=== PATIENT | female | born 1950 | race African-American/Black ===

== ENCOUNTER 2017-07-13 18:00 | Inpatient (IN) | payer MEDICARE, OTHER ==
[~2017-07-13] VITALS: Ht 165.1 cm; Wt 64.0 kg
[~2017-07-13 18:00] MED LIST: ERGO500014 PO; LEVO88TA42 PO; LISI2.5T59 PO; NOVMIX SC
[2017-07-13] MEDS ORDERED: LABETALOL HCL 20MG INJ IV ONE (18:30)
[2017-07-13] MEDS ORDERED: FOLI-49 PO (18:43)
[2017-07-13] MEDS ORDERED: MET25 PO (18:44)
--- NOTE | 2017-07-13 18:49 | RADRPT ---
PROCEDURE: CT head without intravenous contrast CLINICAL INDICATION: Stroke. Slurred speech and confusion, resolving. BP 240/120. COMPARISON: MRI from 07/01/2016. TECHNIQUE: Axial CT images from skull base to vertex with coronal and sagittal reformats. DOSE: The estimated administered radiation dose was CTDI vol = 44 mGy. DLP = 720 mGy-cm. One or mor e of the following dose reduction techniques were used: automated exposure control, adjustment of th e mA and/or kV according to patient size, or use of iterative reconstruction. FINDINGS: Parenchyma: No acute hemorrhage, large territorial infarction, or mass. Moderate amount of periventr icular and subcortical white matter hypodensity, a nonspecific finding often associated with chronic microangiopathy. Ventricles: No ventriculomegaly or ventricular effacement. Extra-axial spaces: No herniation or midline shift. Paranasal sinuses: Clear. Mastoids and middle ears: Clear. Visualized orbits: Normal. Vessels: Mild calcified atherosclerotic arterial plaque. Bones: Normal. Extracranial soft tissues: Normal. Additional comment: None. IMPRESSION: 1. No acute hemorrhage or large territorial infarction. 2. Moderate white matter changes, a non-specific finding often associated with microangiopathy. Dr. Vang discussed results with Dr. Ackerman at 6:48 pm 07/13/2017. RPTAT: AA Physician Shirley Date Time Electronically viewed and signed by Physician Shirley on 07/13/2017 18:49 LG/
[2017-07-13] MEDS ORDERED: ONDANSETRON 4 MG INJ IV PRN ×2 (19:00→21:00)
[2017-07-13] MEDS ORDERED: ACETAMINOPHEN 325 MG TAB PO PRN ×2 (19:00→21:00)
[2017-07-13] MEDS ORDERED: ASPIRIN 325 MG TAB PO ONE (19:00)
--- NOTE | 2017-07-13 19:01 | ERA ---
ER Documentation Chief Complaint Date/Time DATE: 07/13/17 TIME: 18:57 Chief Complaint Patient is hypertensive, Aloc HPI Patient is a 66-year-old female with hypertension and diabetes who presents with slurred speech. The patient was found to be disoriented and slurred speech at 4:30 PM per the daughter. The daughter had called her mom at that time. The mom says that she was not feeling well. The daughter thought maybe this was related to a low blood sugar but the patient had eaten one hour prior. The patient was still out of it however per the daughter. The speech is gotten better but the daughter says her still may be some slurred speech. There is no one-sided weakness. The patient was sweating profusely during this episode per the daughter. The symptoms really started at around 3:45P per the patient. ROS All systems reviewed and are negative except as per history of present illness. Medications Home Meds Reported Medications Methotrexate* (Methotrexate*) 2.5 Mg Tab, 17.5 MG PO Q7D, TAB 07/13/17 Folic Acid* (Folic Acid*) 1 Mg Tablet, 1 MG PO DAILY, TAB 07/13/17 Insulin Aspart (Novolog Mix (70/30)) 100 Units/Ml Soln, 10 SC QPM, EA 06/25/16 Insulin Aspart (Novolog Mix (70/30)) 100 Units/Ml Soln, 30 SC QAM, VIAL 06/25/16 Levothyroxine Sodium* (Levoxyl*) 88 Mcg Tablet, 88 MCG PO BEFORE BREAKFAST, #30 TAB 06/25/16 Discontinued Reported Medications Lisinopril* (Lisinopril*) 2.5 Mg Tablet, 2.5 MG PO DAILY, #30 TAB 06/25/16 Ergocalciferol* (Drisdol* (Vitamin D2)) 50,000 Unit Capsule, 70188 UNIT PO Q7D, CAP 06/25/16 Allergies Allergies: Coded Allergies: No Known Allergy (Unverified , 07/13/17) PMhx/Soc Positive for hypertension and diabetes FmHx Family History: diabetes Physical Exam Vitals Vital Signs Date Time Temp Pulse Resp B/P Pulse Ox O2 Delivery O2 Flow Rate FiO2 07/13/17 18:08 98.3 96 20 243/106 98 Physical Exam Const: No acute distress Head: Atraumatic Eyes: Normal Conjunctiva, patient has a peaked pupil on the left from recent eye surgery ENT: Normal External Ears, Nose and Mouth. Neck: Full range of motion..~ No meningismus. Resp: Clear to auscultation bilaterally Cardio: Regular rate and rhythm, no murmurs Abd: Soft, non tender, non distended. Normal bowel sounds Skin: No petechiae or rashes Back: No midline or flank tenderness Ext: No cyanosis, or edema Neur: Awake and alert, no slurred speech, strength is 5 out of 5 in all 4 extremities, finger to nose is normal, cranial nerves II through XII are intact Psych: Normal Mood and Affect Results 24 hrs Current Medications Medications (Trade) Dose Ordered Sig/Aleshia Route PRN Reason Start Time Stop Time Status Last Admin Dose Admin Labetalol HCl (Labetalol) 20 mg ONCE ONCE IV 07/13/17 18:30 07/13/17 18:31 DC Aspirin (Aspirin) 325 mg ONCE ONCE PO 07/13/17 19:00 07/13/17 19:01 Ondansetron HCl (Zofran Inj) 4 mg ER BRIDGE PRN IV NAUSEA AND/OR VOMITING 07/13/17 19:00 07/14/17 18:59 Acetaminophen (Tylenol Tab) 650 mg ER BRIDGE PRN PO MILD PAIN/FEVER 07/13/17 19:00 07/14/17 18:59 Procedures/MDM CT brain shows no bleed per radiology. EKG read by me: Rate/Rhythm: Sinus bradycardia at a rate of 52 Intervals: Normal Impression: Sinus bradycardia without ischemia Patient is a 66-year-old female who presents with acute slurred speech and disorientation. I believe this is likely a TIA and potentially hypertensive emergency. Her blood pressure was 240/120 in the emergency department. She will be given labetalol 20 mg IV to lower her blood pressure. She was given aspirin after she passed a swallow evaluation and her CT brain was negative for bleeding. The patient will need further workup for TIA as well. I spoke with Dr. Loredo from the panel team for admission to a telemetry bed. Laboratory studies are currently pending. Critical Care: Time: 35 minutes excluding all billable procedures. Treatments/Evaluations: Close monitoring and treatment of unstable vital signs, cardiorespiratory, and neurologic status, while maintaining tight balance of fluid, respiratory, and cardiac interventions. Departure Diagnosis: Primary Impression: TIA (transient ischemic attack) Qualified Code: G45.9 - Transient cerebral ischemia, unspecified type Additional Impression: Hypertensive emergency Condition: KENDRICK Montoya MD Jul 13, 2017 19:01
--- NOTE | 2017-07-13 19:16 | RADRPT ---
PROCEDURE: Chest x-ray CLINICAL INDICATION: Stroke TECHNIQUE: Chest single view COMPARISON: None FINDINGS: There is mild cardiomegaly and an sclerotic aortic calcification. The pulmonary vessels are normal in caliber. There is atelectasis/scarring is now in the right lower lung. Lungs otherwise clear. Th e costophrenic angles are sharp. The right clavicle is not visualized and may be surgically absent. IMPRESSION: No acute cardiopulmonary disease. Linear scarring/atelectasis in the right lower lobe Mild cardiomegaly and atherosclerotic aortic calcification Right clavicle not visualized and may be surgically absent RPTAT: HH .Nolan Pena MD, Date Time Electronically viewed and signed by .Nolan Pena MD, on 07/13/2017 19:16 .W/
[2017-07-13 19:20] LABS: BASOPHILS % 0.3 % (0.0-2.0); EOSINOPHILS # 0.1 10^3/ul (0.0-0.5); EOSINOPHILS % 0.6 % (0.0-7.0); HEMOGLOBIN 14.4 g/dl (12.0-16.0); LYMPHOCYTES # 1.8 10^3/ul (0.8-2.9); LYMPHOCYTES % 15.7 % (15.0-51.0); MEAN CORPUSCULAR HEMOGLOBIN 32.8 pg (29.0-33.0); MEAN CORPUSCULAR HGB CONC 32.7 g/dl (32.0-37.0); MEAN CORPUSCULAR VOLUME 100.2 fl (82.0-101.0); MEAN PLATELET VOLUME 9.4 fl (7.4-10.4); MONOCYTE # 0.7 10^3/ul (0.3-0.9); MONOCYTES % 5.7 % (0.0-11.0); NEUTROPHIL # 9.1 10^3/ul (1.6-7.5); NEUTROPHILS % 77.4 % (39.0-77.0); PLATELET COUNT 216 10^3/UL (140-415); RED BLOOD COUNT 4.39 10^6/ul (4.20-5.40); RED CELL DISTRIBUTION WIDTH 14.5 % (11.5-14.5); WHITE BLOOD COUNT 11.7 10^3/ul (4.8-10.8)
[2017-07-13 19:25] LABS: ADD UMIC YES; UR ASCORBIC ACID NEGATIVE (NEGATIVE); UR BILIRUBIN (Dip) NEGATIVE (NEGATIVE); UR BLOOD (Dip) NEGATIVE (NEGATIVE); UR CLARITY CLEAR (CLEAR); UR COLOR COLORLESS (YELLOW); UR GLUCOSE (Dip) NEGATIVE (NEGATIVE); UR KETONES (Dip) NEGATIVE (NEGATIVE); UR LEUKOCYTE ESTERASE (Dip) NEGATIVE Leu/ul (NEGATIVE); UR NITRITE (Dip) NEGATIVE (NEGATIVE); UR RBC 3 /HPF (0-5); UR SPECIFIC GRAVITY (Dip) 1.003 (1.003-1.030); UR TOTAL PROTEIN (Dip) 3+ mg/dl (NEGATIVE); UR UROBILINOGEN (Dip) NEGATIVE (NEGATIVE)
[2017-07-13] MEDS ORDERED: hydrALAzine 20 MG INJ ONE (19:26)
[2017-07-13] MEDS ORDERED: hydrALAzine 20 MG INJ IV ONE (19:30)
[2017-07-13 19:37] LABS: BARBITURATES Negative (NEGATIVE); BENZODIAZEPINES Negative (NEGATIVE); CANNABINOIDS Negative (NEGATIVE); COCAINE Negative (NEGATIVE); OPIATES Negative (NEGATIVE)
[2017-07-13 19:44] LABS: INR 0.83; PROTIME 11.4 Sec (12.2-14.2); PT RATIO 0.9
[2017-07-13 19:45] LABS: PARTIAL THROMBOPLASTIN TIME 32.8 Sec (25.0-35.0)
[2017-07-13 19:46] LABS: ANION GAP 11 (8-16); BLOOD UREA NITROGEN 15 mg/dl (7-20); CALCIUM 9.8 mg/dl (8.4-10.2); CARBON DIOXIDE 33 mmol/L (21-31); CHLORIDE 106 mmol/L (97-110); CREATININE 0.99 mg/dl (0.44-1.00); GLUCOSE 82 mg/dl (70-220); POTASSIUM 4.1 mmol/L (3.5-5.1); SODIUM 146 mmol/L (135-144)
[2017-07-13 20:04] LABS: TROPONIN-I < 0.012 ng/ml (0.00-0.12)
[2017-07-13] MEDS: SOD CHLORIDE 0.9% 1,000 ML IV SCH (20:42)
[2017-07-13] MEDS ORDERED: NACL 0.9% 3 ML SYG IV SCH (21:00)
[2017-07-13] MEDS: FAMOTIDINE 20 MG INJ IV SCH (21:00)
--- NOTE | 2017-07-13 21:31 | EN ---
Date/Time of Note Date/Time of Note DATE: 07/13/17 TIME: 21:26 ER Progress Note This patient was signed out to me by Dr. Iam Ackerman at 7 PM on September 12, 2017. Very briefly this is a 66-year-old female who is presenting with hypertensive emergency and findings concerning for a TIA. The patient was admitted by Dr. Ackerman, but her chest x-ray and blood work was pending at the time. The patient has a mild leukocytosis but no left shift. She is afebrile and I do not suspect a systemic infection. The patient's not anemic today. The patient's platelet count is unremarkable. The patient's renal function is unremarkable. The patient's troponin is negative. The patient does not have any significant electrolyte abnormalities. The patient's urinalysis shows no signs of an obvious urinary tract infection. The patient does have protein in her urine that could demonstrate a nephropathy, which could be associated with her high blood pressure. Patient's imaging was read by the radiologist as follows: CT HEAD IMPRESSION: No acute hemorrhage or large territorial infarction. Moderate white matter changes, a non-specific finding often associated with microangiopathy. Dr. Vang discussed results with Dr. Ackerman at 6:48 pm 2016. Electronically viewed and signed by Travis Vang Physician on 07/13/2017 18: 49 CXR IMPRESSION: No acute cardiopulmonary disease. Linear scarring/atelectasis in the right lower lobe. Mild cardiomegaly and atherosclerotic aortic calcification. Right clavicle not visualized and may be surgically absent Electronically viewed and signed by .Nolan Pena MD, MD on 07/13/2017 19:16 The patient was reevaluated and did not have any further complaints. The patient was ordered labetalol, but she was bradycardic in the emergency department. This was changed to 10 mg of hydralazine. The patient's blood pressure did trend down. She will be admitted for evaluation of her hypertensive urgency as well as evaluation for a TIA. SUKHI GARCIA MD Jul 13, 2017 21:31
[2017-07-14] VITALS (11 sets, daily range): BP systolic 134–179; BP diastolic 63–81; PULSE 55–78; RESP 16–19; Ht 165.1 cm; Wt 64.0 kg
[2017-07-14] MEDS ORDERED: DEXTROSE 50% 50 ML SYRINGE IV PRN ×2 (04:00)
[2017-07-14] MEDS ORDERED: GLUCOSE GEL 15 GRAM TUBE PO PRN ×2 (04:00)
[2017-07-14] MEDS ORDERED: GLUCOSE GEL 15 GRAM TUBE BUCCAL PRN (04:00)
[2017-07-14] MEDS ORDERED: GLUCAGON 1 MG INJ IM PRN (04:00)
--- NOTE | 2017-07-14 04:40 | HP ---
Date/Time of Note Date/Time of Note DATE: 07/14/17 TIME: 04:25 Assessment/Plan VTE Prophylaxis VTE Prophylaxis Intervention: SCD's Lines/Catheters Urinary Cath still in place: No Assessment/Plan Chief Complaint/Hosp Course This is a 66-year-old female being admitted to the telemetry floor for: #1 Slurred speech: Rule out TIA/neuro vascular abnormality. CAT scan of the head is normal. At the current time will allow for permissive hypertension in the setting of possible underlying neurovascular abnormality. Will obtain an MRA of the head and neck and MRI of the brain without contrast. Lipid panel, hemoglobin A1c. Neurology consult. PT OT evaluation, patient passed bedside swallow eval will put patient on diabetic diet. Neurochecks every 4 hours. #2 diabetes mellitus: Cover 100 control diet, A1c, continue insulin regimen, insulin sliding scale #3 rheumatoid arthritis: Continue folic acid, resume home methotrexate as an outpatient #4 hypertension: At the current time will allow for permissive hypertension, will treat with hydralazine for blood pressure of 220/120 #5 DVT GI prophylaxis: SCDs, acid casper Further treatment strategy will be implemented as per the clinical course Problems: HPI/ROS Admit Date/Time Admit Date/Time Jul 13, 2017 at 18:53 Hx of Present Illness Chief complaint: Slurred speech Patient is a 66-year-old female with hypertension and diabetes who presents with slurred speech. The patient was found to be disoriented and slurred speech at 4:30 PM per the daughter. The daughter had called her mom at that time. The mom says that she was not feeling well. The daughter thought maybe this was related to a low blood sugar but the patient had eaten one hour prior. The patient was still out of it however per the daughter. The speech is gotten better but the daughter says her still may be some slurred speech. There is no one-sided weakness. The patient was sweating profusely during this episode per the daughter. The symptoms really started at around 3:45P per the patient. Upon my examination patient states that her Symptoms have improved and she feels that she is back to normal her speech appears to be be normal as she states. Allergies: NKDA Medications: See NICOLE RODRÍGUEZ Const: As per HPI Eyes : No pain discharge or redness or change in visual acuity ENT: No pain, sore throat, congestion, congestion, dysphagia or discharge Respiratory: No shortness of breath, cough, sputum, wheezing, or pleuritic pain Cardiovascular: No chest pain, palpitation, PND, or edema GI : no change in appetite, abdominal pain, nausea, vomiting, diarrhea, constipation, or change in the color his stool Genitourinary: No dysuria, hematuria, flank pain , discharge or CVA tenderness Musculoskeletal: No joint pain, back pain, neck pain, restricted range of motion in neck or joints Skin: No rash, bruising or hives Neuro: As per HPI Endocrine: No polyuria, polydipsia, temperature intolerance Psych: No hallucination, depression, anxiety or suicidal ideation PMH/Family/Social Past Medical History Rheumatoid arthritis, diabetes mellitus, hypertension, diabetic retinopathy, history of thoracic outlet syndrome Past Surgical History Thoracic outlet syndrome surgery, 1 Family History Significant Family History: heart disease, diabetes, hypertension Social History Alcohol Use: none Smoking Status: Never smoker Drug Use: none Exam/Review of Systems Vital Signs Vitals Vital Signs Date Time Temp Pulse Resp B/P Pulse Ox O2 Delivery O2 Flow Rate FiO2 07/14/17 04:17 55 07/14/17 03:57 97.6 19 135/63 96 07/13/17 21:15 Room Air Exam Exam General: Patient is well-developed well-nourished The patient is alert oriented -3 lying comfortably in bed. HEENT: Atraumatic, normocephalic. The pupils are equal, round and reactive. Extraocular motor are intact Neck: Supple with full range of motion. No rigidity or meningismus Chest: Nontender Lungs: Clear to auscultation bilaterally no crackles rales or wheezing Heart: Normal S1-S2, Regular rhythm and rate. No murmur, S3, or S4 Abdomen: Soft , nontender, nondistended , bowel sounds are present. No guarding no rebound tenderness , No masses or organomegaly. No costovertebral temporal angle mass Extremities: Normal to inspection, no edema no cyanosis Neurologic: Normal mental status, speech normal, cranial nerves II through XII are intact, motor and sensory are intact, no focal neurological deficits during examination, no pronator drift Additional Comments EKG Rate/Rhythm: Sinus bradycardia at a rate of 52 Intervals: Normal Impression: Sinus bradycardia without ischemia As per ED physician documentation ROCEDURE: Chest x-ray CLINICAL INDICATION: Stroke TECHNIQUE: Chest single view COMPARISON: None FINDINGS: There is mild cardiomegaly and an sclerotic aortic calcification. The pulmonary vessels are normal in caliber. There is atelectasis/scarring is now in the right lower lung. Lungs otherwise clear. The costophrenic angles are sharp. The right clavicle is not visualized and may be surgically absent. IMPRESSION: No acute cardiopulmonary disease. Linear scarring/atelectasis in the right lower lobe Mild cardiomegaly and atherosclerotic aortic calcification Right clavicle not visualized and may be surgically absent RPTAT: HH .Nolan Pena MD, MD Date Time Electronically viewed and signed by .Nolan Pena MD, MD on 07/13/2017 19:16 .W/ CC: KENDRICK HAYNES MD PROCEDURE: CT head without intravenous contrast CLINICAL INDICATION: Stroke. Slurred speech and confusion, resolving. BP 240/ 120. COMPARISON: MRI from 07/01/2016. TECHNIQUE: Axial CT images from skull base to vertex with coronal and sagittal reformats. DOSE: The estimated administered radiation dose was CTDI vol = 44 mGy. DLP = 720 mGy-cm. One or more of the following dose reduction techniques were used: automated exposure control, adjustment of the mA and/or kV according to patient size, or use of iterative reconstruction. FINDINGS: Parenchyma: No acute hemorrhage, large territorial infarction, or mass. Moderate amount of periventricular and subcortical white matter hypodensity, a nonspecific finding often associated with chronic microangiopathy. Ventricles: No ventriculomegaly or ventricular effacement. Extra-axial spaces: No herniation or midline shift. Paranasal sinuses: Clear. Mastoids and middle ears: Clear. Visualized orbits: Normal. Vessels: Mild calcified atherosclerotic arterial plaque. Bones: Normal. Extracranial soft tissues: Normal. Additional comment: None. IMPRESSION: 1. No acute hemorrhage or large territorial infarction. 2. Moderate white matter changes, a non-specific finding often associated with microangiopathy. Dr. Vang discussed results with Dr. Haynes at 6:48 pm 07/13/2017. RPTAT: AA Physician Shirley Date Time Electronically viewed and signed by Travis Vang Physician on 07/13/2017 18: 49 LG/ CC: KENDRICK HAYNES MD Labs Result Diagram: 07/13/17 1900 07/13/17 1900 Medications Medications Current Medications Sodium Chloride (NS) 1,000 ml @ 70 mls/hr [id number] IV Last administered on 07/13 20:42; Admin Dose 70 MLS/HR; Start 07/13/17 at 20:42 Ondansetron HCl (Zofran Inj) 4 mg Q6H PRN IV NAUSEA AND/OR VOMITING; Start at 21:00 Acetaminophen (Tylenol Tab) 650 mg Q6H PRN PO PAIN LEVEL 1-3 OR FEVER; Start at 21:00 Famotidine (Pepcid Iv) 20 mg Q12 IV Last administered on 07/13/17 21:00; Admin Dose 20 MG; Start 07/13/17 at 21:00 Hydralazine HCl (Apresoline) 10 mg Q6H PRN IV ELEVATED BLOOD PRESSURE; Start at 00:00 Influenza Virus Vaccine (Fluzone) 0.5 ml ONCE ONCE IM* ; Start 07/15/17 at 01:30 ; Stop 07/15/17 at 01:31 Folic Acid (Folic Acid) 1 mg DAILY PO ; Start 07/14/17 at 09:00 Insulin Aspart Prota 70%/Aspart 30% (Novolog Mix (70/ 30) Flexpen) 10 unit QPM SC ; Start 07/14/17 at 21:00 Insulin Aspart Prota 70%/Aspart 30% (Novolog Mix (70/ 30) Flexpen) 30 unit QAM SC ; Start 07/14/17 at 09:00 Diagnostic Test (Pha) (Accu-Chek) 1 ea 02 XX ; Start 07/15/17 at 02:00 Miscellaneous Information 1 ea NOTE XX ; Start 07/14/17 at 04:00 Glucose (Glutose) 15 gm Q15M PRN PO DECREASED GLUCOSE; Start 07/14/17 at 04:00 Glucose (Glutose) 22.5 gm Q15M PRN PO DECREASED GLUCOSE; Start 07/14/17 at 04: 00 Dextrose (D50w Syringe) 25 ml Q15M PRN IV DECREASED GLUCOSE; Start 07/14/17 at 04:00 Dextrose (D50w Syringe) 50 ml Q15M PRN IV DECREASED GLUCOSE; Start 07/14/17 at 04:00 Glucagon (Glucagen) 1 mg Q15M PRN IM DECREASED GLUCOSE; Start 07/14/17 at 04:00 Glucose (Glutose) 15 gm Q15M PRN BUCCAL DECREASED GLUCOSE; Start 07/14/17 at 04 :00 LUCIA WHITFIELD Jul 14, 2017 04:37
[2017-07-14] MEDS: LEVOTHYROXINE 88 MCG TAB PO SCH (07:00)
[2017-07-14] MEDS: INSULIN ASPART [NOVOLOG] 3 ML PEN SC SCH ×4 (07:55→22:10)
[2017-07-14 08:50] LABS: BASOPHILS % 0.3 % (0.0-2.0); EOSINOPHILS # 0.1 10^3/ul (0.0-0.5); HEMATOCRIT 37.5 % (37.0-47.0); HEMOGLOBIN 11.9 g/dl (12.0-16.0); LYMPHOCYTES # 1.8 10^3/ul (0.8-2.9); LYMPHOCYTES % 24.5 % (15.0-51.0); MEAN CORPUSCULAR HEMOGLOBIN 31.5 pg (29.0-33.0); MEAN CORPUSCULAR HGB CONC 31.7 g/dl (32.0-37.0); MEAN CORPUSCULAR VOLUME 99.2 fl (82.0-101.0); MONOCYTE # 0.9 10^3/ul (0.3-0.9); NEUTROPHIL # 4.5 10^3/ul (1.6-7.5); NEUTROPHILS % 61.9 % (39.0-77.0); PLATELET COUNT 195 10^3/UL (140-415); RED BLOOD COUNT 3.78 10^6/ul (4.20-5.40); RED CELL DISTRIBUTION WIDTH 14.6 % (11.5-14.5); WHITE BLOOD COUNT 7.3 10^3/ul (4.8-10.8)
[2017-07-14] MEDS: FOLIC ACID 1 MG TAB PO SCH (09:01)
[2017-07-14] MEDS: FAMOTIDINE 20 MG INJ IV SCH ×2 (09:03→21:13)
[2017-07-14] MEDS: INSULIN ASP PROT/ASPART (70/30) PEN SC SCH ×2 (09:03→22:11)
[2017-07-14 09:28] LABS: ALBUMIN 3.2 g/dl (3.3-4.9); ALBUMIN/GLOBULIN RATIO 0.88; BILIRUBIN,INDIRECT 0.4 mg/dl (0-1.1); BILIRUBIN,TOTAL 0.4 mg/dl (0.2-1.3); CALCIUM 8.7 mg/dl (8.4-10.2); CHOL/HDL RATIO 2.6 RATIO; MAGNESIUM 1.8 mg/dl (1.7-2.5); POTASSIUM 3.5 mmol/L (3.5-5.1); TOTAL PROTEIN 6.8 g/dl (6.1-8.1)
[2017-07-14 09:53] LABS: THYROID STIMULATING HORMONE 3.47 MIU/L (0.465-4.680)
[2017-07-14] MEDS: SOD CHLORIDE 0.9% 1,000 ML IV SCH (12:02)
--- NOTE | 2017-07-14 14:05 | CONS ---
Date/Time of Note Date/Time of Note DATE: 07/14/17 TIME: 14:03 Assessment/Plan Assessment/Plan Chief Complaint/Hosp Course Episode of dysarthria Problems: Additional Assessment/Plan Patient is a 66-year-old female with hypertension and diabetes admitted with sudden onset of symptoms of slurred speech. She was also disoriented. She spoke with her daughter who noticed her to have slurred speech. Patient had history of hypoglycemia in the past but this time she had just eaten. Her symptoms has improved. CT scan of the brain without contrast showed moderate white matter disease, nothing acute. Examination is nonfocal. My impression is that she likely had an episode of hypoglycemia or TIA. Plan MRI of the brain Carotid ultrasound Echocardiogram Start on aspirin 81 mg p.o. daily Neuro check every 4 hours We will follow Consultation Date/Type/Reason Admit Date/Time Jul 13, 2017 at 18:53 Date of Consultation: Jul 14, 2017 Type of Consultation: Neurology Reason for Consultation Episode of slurring of speech Hx of Present Illness Patient is a 66-year-old female with hypertension and diabetes admitted with sudden onset of symptoms of slurred speech. She was also disoriented. She spoke with her daughter who noticed her to have slurred speech. Patient had history of hypoglycemia in the past but this time she had just eaten. Her symptoms has improved. CT scan of the brain without contrast showed moderate white matter disease, nothing acute. Constitutional: improved, no complaints Eyes: no complaints ENT: no complaints Respiratory: no complaints Cardiovascular: no complaints Gastrointestinal: no complaints Genitourinary: no complaints Musculoskeletal: no complaints Skin: no complaints Neurologic: no complaints Endocrine: no complaints Lymphatic: no complaints Psychological: nl mood/affect, no complaints Social History Alcohol Use: none Smoking Status: Never smoker Drug Use: none Exam/Review of Systems Vital Signs Vitals Vital Signs Date Time Temp Pulse Resp B/P Pulse Ox O2 Delivery O2 Flow Rate FiO2 07/14/17 12:06 64 07/14/17 11:46 97.5 16 170/77 98 07/13/17 21:15 Room Air Intake and Output 07/13/17 07/13/17 07/14/17 15:00 23:00 07:00 Intake Total 1000 ml Balance 1000 ml Exam Constitutional: alert, oriented, well developed Psych: nl mood/affect, no complaints Head: atraumatic, normocephalic Eyes: EOMI, nl conjunctiva, nl lids, nl sclera ENMT: mucosa pink and moist, nl external ears & nose, nl lips & teeth, nl nasal mucosa & septum Neck: non-tender, supple Respiratory: clear to auscultation, normal air movement Cardiovascular: nl pulses, regular rate and rhythm Gastrointestinal: nl liver, spleen, non-tender, soft Genitourinary - Female: nl adnexae, nl external genitalia Musculoskeletal: nl extremities to inspection, nl gait and stance Extremities: normal pulses Neurological: [employer] II-XII intact, nl mental status, nl speech, nl strength Skin: nl turgor, rash or lesions Lymph: nl lymph nodes Results Result Diagram: 07/14/17 0735 07/14/17 0735 Results 24 hrs Laboratory Tests Test 07/13/17 19:00 07/13/17 23:54 07/14/17 00:38 07/14/17 07:35 White Blood Count 11.7 H 7.3 # Red Blood Count 4.39 3.78 L Hemoglobin 14.4 11.9 L Hematocrit 44.0 37.5 Mean Corpuscular Volume 100.2 99.2 Mean Corpuscular Hemoglobin 32.8 31.5 Mean Corpuscular Hemoglobin Concent 32.7 31.7 L Red Cell Distribution Width 14.5 14.6 H Platelet Count 216 195 Mean Platelet Volume 9.4 10.0 Neutrophils % 77.4 H 61.9 Lymphocytes % 15.7 24.5 Monocytes % 5.7 12.0 H Eosinophils % 0.6 1.0 Basophils % 0.3 0.3 Nucleated Red Blood Cells % 0.0 0.0 Neutrophils # 9.1 H 4.5 Lymphocytes # 1.8 1.8 Monocytes # 0.7 0.9 Eosinophils # 0.1 0.1 Basophils # 0.0 0.0 Nucleated Red Blood Cells # 0.0 0.0 Prothrombin Time 11.4 L Prothrombin Time Ratio 0.9 INR International Normalized Ratio 0.83 Activated Partial Thromboplast Time 32.8 Urine Color COLORLESS Urine Clarity CLEAR Urine pH 8.0 Urine Specific [place] 1.003 Urine Ketones NEGATIVE Urine Nitrite NEGATIVE Urine Bilirubin NEGATIVE Urine Urobilinogen NEGATIVE Urine Leukocyte Esterase NEGATIVE Urine Microscopic RBC 3 Urine Microscopic WBC 2 Urine Hemoglobin NEGATIVE Urine Glucose NEGATIVE Urine Total Protein 3+ H Sodium Level 146 H 142 Potassium Level 4.1 3.5 Chloride Level 106 109 Carbon Dioxide Level 33 H 29 Anion Gap 11 8 Blood Urea Nitrogen 15 15 Creatinine 0.99 1.00 Glucose Level 82 71 Hemoglobin A1c 6.0 H Calcium Level 9.8 8.7 Troponin I < 0.012 Urine Opiates Screen Negative Urine Barbiturates Negative Urine Amphetamines Screen Negative Urine Benzodiazepines Screen Negative Urine Cocaine Screen Negative Urine Cannabinoids Negative Bedside Glucose 63 L 147 Magnesium Level 1.8 Total Bilirubin 0.4 Direct Bilirubin 0.00 Indirect Bilirubin 0.4 Aspartate Amino Transf (AST/SGOT) 39 Alanine Aminotransferase (ALT/SGPT) 37 Alkaline Phosphatase 132 H Total Protein 6.8 Albumin 3.2 L Globulin 3.60 H Albumin/Globulin Ratio 0.88 Triglycerides Level 96 Cholesterol Level 194 LDL Cholesterol, Calculated 103 HDL Cholesterol 72 Cholesterol/HDL Ratio 2.6 Thyroid Stimulating Hormone (TSH) 3.470 Test 07/14/17 07:59 07/14/17 12:00 Bedside Glucose 76 99 Medications Medications Current Medications Sodium Chloride (NS) 1,000 ml @ 70 mls/hr [id number] IV Last administered on 07/14 12:02; Admin Dose 70 MLS/HR; Start 07/13/17 at 20:42 Ondansetron HCl (Zofran Inj) 4 mg Q6H PRN IV NAUSEA AND/OR VOMITING; Start at 21:00 Acetaminophen (Tylenol Tab) 650 mg Q6H PRN PO PAIN LEVEL 1-3 OR FEVER; Start at 21:00 Famotidine (Pepcid Iv) 20 mg Q12 IV Last administered on 07/14/17 09:03; Admin Dose 20 MG; Start 07/13/17 at 21:00 Hydralazine HCl (Apresoline) 10 mg Q6H PRN IV ELEVATED BLOOD PRESSURE; Start at 00:00 Influenza Virus Vaccine (Fluzone) 0.5 ml ONCE ONCE IM* ; Start 07/15/17 at 01:30 ; Stop 07/15/17 at 01:31 Folic Acid (Folic Acid) 1 mg DAILY PO Last administered on 07/14/17 09:01; Admin Dose 1 MG; Start 07/14/17 at 09:00 Insulin Aspart Prota 70%/Aspart 30% (Novolog Mix (70/ 30) Flexpen) 10 unit QPM SC ; Start 07/14/17 at 21:00 Insulin Aspart Prota 70%/Aspart 30% (Novolog Mix (70/ 30) Flexpen) 30 unit QAM SC Last administered on 07/14/17t 09:03; Admin Dose 30 UNIT; Start 07/14/17 at 09:00 Diagnostic Test (Pha) (Accu-Chek) 1 ea 02 XX ; Start 07/15/17 at 02:00 Miscellaneous Information 1 ea NOTE XX ; Start 07/14/17 at 04:00 Glucose (Glutose) 15 gm Q15M PRN PO DECREASED GLUCOSE; Start 07/14/17 at 04:00 Glucose (Glutose) 22.5 gm Q15M PRN PO DECREASED GLUCOSE; Start 07/14/17 at 04: 00 Dextrose (D50w Syringe) 25 ml Q15M PRN IV DECREASED GLUCOSE; Start 07/14/17 at 04:00 Dextrose (D50w Syringe) 50 ml Q15M PRN IV DECREASED GLUCOSE; Start 07/14/17 at 04:00 Glucagon (Glucagen) 1 mg Q15M PRN IM DECREASED GLUCOSE; Start 07/14/17 at 04:00 Glucose (Glutose) 15 gm Q15M PRN BUCCAL DECREASED GLUCOSE; Start 07/14/17 at 04 :[address] scan of the brain 07/13/2017 IMPRESSION: 1. No acute hemorrhage or large territorial infarction. 2. Moderate white matter changes, a non-specific finding often associated with microangiopathy. Dr. Vang discussed results with Dr. Ackerman at 6:48 pm 07/13/2017. RPTAT: AA Physician Shirley Date Time Electronically viewed and signed by Travis Vang Physician on 07/13/2017 18: 49 BRENTON GONZALEZ MD Jul 14, 2017 14:05
--- NOTE | 2017-07-14 15:42 | PN ---
Date/Time of Note Date/Time of Note DATE: 07/14/17 TIME: 15:34 Assessment/Plan VTE Prophylaxis VTE Prophylaxis Intervention: other Lines/Catheters IV [facility] Peripheral IV Urinary Cath still in place: No Assessment/Plan Assessment/Plan 1. Slurred speech secondary to TIA vs hypoglycemia - CT scan shows white matter changes but no acute abnormalities - Neurology on board and recommendations appreciated - MRI/MRA brain ordered - Carotid duplex ordered - ECHO ordered - Neurochecks q4hr - Started on Aspirin - All for permissive hypertension at this time 2. Diabetes mellitus - May need to adjust insulin if patient has persistent hypoglycemia episodes - A1c 6.0 3. rheumatoid arthritis - Continue folic acid - resume home methotrexate as an outpatient 4. hypertension - will allow for permissive hypertension - hydralazine for blood pressure of 220/120 Subjective 24 Hr Interval Summary Free Text/Dictation Patient states she is feeling back to baseline and no longer experiencing slurred speech. States last time she experienced these symptoms she was found to have a glucose of 50. She, however, had just eaten prior to this episode. Denies any other complaints. Exam/Review of Systems Vital Signs Vitals Vital Signs Date Time Temp Pulse Resp B/P Pulse Ox O2 Delivery O2 Flow Rate FiO2 07/14/17 15:12 98.2 69 16 179/75 99 07/13/17 21:15 Room Air Intake and Output 07/13/17 07/13/17 07/14/17 15:00 23:00 07:00 Intake Total 1000 ml Balance 1000 ml Exam General: NAD, awake and alert HEENT: NC/AT. symmetrical face, EOM intact, PERRL. no audible bruits CVS: regular rate and rhythm. no murmurs Lungs: CTA b/l. no wheezes or crackles Abd: soft, NT, ND, no rebound or guarding Ext: moving all extremities, no cyanosis, clubbing, or edema Neuro: CN 2-12 intact. no focal deficits appreciated. 5/5 strength UE and LE b/ l. Results Result Diagram: 07/14/17 0735 07/14/17 0735 Results 24 hrs Laboratory Tests Test 07/13/17 19:00 07/13/17 23:54 07/14/17 00:38 07/14/17 07:35 White Blood Count 11.7 H 7.3 # Red Blood Count 4.39 3.78 L Hemoglobin 14.4 11.9 L Hematocrit 44.0 37.5 Mean Corpuscular Volume 100.2 99.2 Mean Corpuscular Hemoglobin 32.8 31.5 Mean Corpuscular Hemoglobin Concent 32.7 31.7 L Red Cell Distribution Width 14.5 14.6 H Platelet Count 216 195 Mean Platelet Volume 9.4 10.0 Neutrophils % 77.4 H 61.9 Lymphocytes % 15.7 24.5 Monocytes % 5.7 12.0 H Eosinophils % 0.6 1.0 Basophils % 0.3 0.3 Nucleated Red Blood Cells % 0.0 0.0 Neutrophils # 9.1 H 4.5 Lymphocytes # 1.8 1.8 Monocytes # 0.7 0.9 Eosinophils # 0.1 0.1 Basophils # 0.0 0.0 Nucleated Red Blood Cells # 0.0 0.0 Prothrombin Time 11.4 L Prothrombin Time Ratio 0.9 INR International Normalized Ratio 0.83 Activated Partial Thromboplast Time 32.8 Urine Color COLORLESS Urine Clarity CLEAR Urine pH 8.0 Urine Specific [place] 1.003 Urine Ketones NEGATIVE Urine Nitrite NEGATIVE Urine Bilirubin NEGATIVE Urine Urobilinogen NEGATIVE Urine Leukocyte Esterase NEGATIVE Urine Microscopic RBC 3 Urine Microscopic WBC 2 Urine Hemoglobin NEGATIVE Urine Glucose NEGATIVE Urine Total Protein 3+ H Sodium Level 146 H 142 Potassium Level 4.1 3.5 Chloride Level 106 109 Carbon Dioxide Level 33 H 29 Anion Gap 11 8 Blood Urea Nitrogen 15 15 Creatinine 0.99 1.00 Glucose Level 82 71 Hemoglobin A1c 6.0 H Calcium Level 9.8 8.7 Troponin I < 0.012 Urine Opiates Screen Negative Urine Barbiturates Negative Urine Amphetamines Screen Negative Urine Benzodiazepines Screen Negative Urine Cocaine Screen Negative Urine Cannabinoids Negative Bedside Glucose 63 L 147 Magnesium Level 1.8 Total Bilirubin 0.4 Direct Bilirubin 0.00 Indirect Bilirubin 0.4 Aspartate Amino Transf (AST/SGOT) 39 Alanine Aminotransferase (ALT/SGPT) 37 Alkaline Phosphatase 132 H Total Protein 6.8 Albumin 3.2 L Globulin 3.60 H Albumin/Globulin Ratio 0.88 Triglycerides Level 96 Cholesterol Level 194 LDL Cholesterol, Calculated 103 HDL Cholesterol 72 Cholesterol/HDL Ratio 2.6 Thyroid Stimulating Hormone (TSH) 3.470 Test 07/14/17 07:59 07/14/17 12:00 Bedside Glucose 76 99 Medications Medications Current Medications Sodium Chloride (NS) 1,000 ml @ 70 mls/hr [id number] IV Last administered on 07/14 12:02; Admin Dose 70 MLS/HR; Start 07/13/17 at 20:42 Ondansetron HCl (Zofran Inj) 4 mg Q6H PRN IV NAUSEA AND/OR VOMITING; Start at 21:00 Acetaminophen (Tylenol Tab) 650 mg Q6H PRN PO PAIN LEVEL 1-3 OR FEVER; Start at 21:00 Famotidine (Pepcid Iv) 20 mg Q12 IV Last administered on 07/14/17 09:03; Admin Dose 20 MG; Start 07/13/17 at 21:00 Hydralazine HCl (Apresoline) 10 mg Q6H PRN IV ELEVATED BLOOD PRESSURE; Start at 00:00 Influenza Virus Vaccine (Fluzone) 0.5 ml ONCE ONCE IM* ; Start 07/15/17 at 01:30 ; Stop 07/15/17 at 01:31 Folic Acid (Folic Acid) 1 mg DAILY PO Last administered on 07/14/17 09:01; Admin Dose 1 MG; Start 07/14/17 at 09:00 Insulin Aspart Prota 70%/Aspart 30% (Novolog Mix (70/ 30) Flexpen) 10 unit QPM SC ; Start 07/14/17 at 21:00 Insulin Aspart Prota 70%/Aspart 30% (Novolog Mix (70/ 30) Flexpen) 30 unit QAM SC Last administered on 07/14/17 09:03; Admin Dose 30 UNIT; Start 07/14/17 at 09:00 Diagnostic Test (Pha) (Accu-Chek) 1 ea 02 XX ; Start 07/15/17 at 02:00 Miscellaneous Information 1 ea NOTE XX ; Start 07/14/17 at 04:00 Glucose (Glutose) 15 gm Q15M PRN PO DECREASED GLUCOSE; Start 07/14/17 at 04:00 Glucose (Glutose) 22.5 gm Q15M PRN PO DECREASED GLUCOSE; Start 07/14/17 at 04: 00 Dextrose (D50w Syringe) 25 ml Q15M PRN IV DECREASED GLUCOSE; Start 07/14/17 at 04:00 Dextrose (D50w Syringe) 50 ml Q15M PRN IV DECREASED GLUCOSE; Start 07/14/17 at 04:00 Glucagon (Glucagen) 1 mg Q15M PRN IM DECREASED GLUCOSE; Start 07/14/17 at 04:00 Glucose (Glutose) 15 gm Q15M PRN BUCCAL DECREASED GLUCOSE; Start 07/14/17 at 04 :00 REYNALDO MANZANARES MD Jul 14, 2017 15:42
--- NOTE | 2017-07-14 18:36 | RADRPT ---
Echocardiogram Report Patient Name: SHON NICHOLE Gender: Female Date: 1950 Study Date: 14-Jul-2017 Sales And Marketing Assistant: ROSA Hewitt Location: [facility] Ref. Physician: LUCIA WHITFIELD Quality: Adequate Procedures: Transthoracic echocardiogram with complete 2D, M-Mode, and doppler examination. Indications: Transient Ischemic Attack with bubble study. 2D/M Mode Doppler Measurement Value Normal Ranges Measurement Value Normal Ranges LVIDd 2D 3.8 3.5 - 5.6 cm AV Peak Curly 1.6 m/sec LVIDs 2D 2.0 2.1 - 4.1 cm AV Peak PG 10.7 mmHg LVPWd 2D 1.4 0.6 - 1.1 cm LVOT Peak Curly 1.0 m/sec IVSd 2D 1.5 0.6 - 1.1 cm LVOT Peak PG 4.1 mmHg AoR Diam 2D 2.2 2.0 - 3.7 cm MV E Peak Curly 0.7 m/sec EDV 2D 62.0 cm3 MV A Peak Curly 0.9 m/sec ESV 2D 7.6 cm3 MV E/A 0.8 LA Dimen 2D 3.3 2.3 - 4.0 cm MV Decel Time 261 msec MV Decel [place] 3 MV E/A 0.8 TR Peak Cruly 1.6 m/sec TR Peak PG 10.3 mmHg RVSP 13.0 mmHg Findings Left Ventricle: Normal left ventricular systolic function. Normal left ventricular cavity size. Moderate concentric left ventricular hypertrophy. Ejection fraction is visually estimated at 6065 %. Tissue Doppler/Mitral Doppler indices are consistent with impaired relaxation (Stage I diastolic dysfunction). Right Ventricle: Normal right ventricular size. Normal right ventricular systolic function. Left Atrium: The left atrium is normal in size. Right Atrium: The right atrium is normal in size. Atrial Septum: Bubble study was performed with and with out valsalva indicating no evidence of intra atrial shunt. Mitral Valve: Mitral valve leaflets appear mildly thickened. Mild mitral annular calcification. Trace mitral regurgitation. Aortic Valve: No hemodynamically significant aortic stenosis by doppler. Aortic cusps appear mildly calcified. Trace aortic valve regurgitation. Tricuspid Valve: Normal appearance and function of the tricuspid valve with trace physiologic regurgitation. Estimated peak PA systolic pressure 13 mmHg. Pulmonic Valve: Pulmonic valve not well visualized. Pericardium: Normal pericardium with no significant pericardial effusion. Aorta: Normal aortic root. IVC: Normal size and normal respiratory collapse consistent with normal right atrial pressure. Conclusions 1.Normal left ventricular systolic function. Normal left ventricular cavity size. Moderate concentric left ventricular hypertrophy. Ejection fraction is visually estimated at 60-65 %. Tissue Doppler/Mitral Doppler indices are consistent with impaired relaxation (Stage I diastolic dysfunction). 2.Bubble study was performed with and with out valsalva indicating no evidence of intra atrial shunt. 3.Mitral valve leaflets appear mildly thickened. Mild mitral annular calcification. Trace mitral regurgitation. 4.No hemodynamically significant aortic stenosis by doppler. Aortic cusps appear mildly calcified. Trace aortic valve regurgitation. 5.Normal appearance and function of the tricuspid valve with trace physiologic regurgitation. Estimated peak PA systolic pressure 13 mmHg. Electronically Signed By: Darren Tineo 14-Jul-2017 18:35:08 -0700 Patient Name: SHON NICHOLE Study Date: 14-Jul-2017 [id number]
--- NOTE | 2017-07-14 21:18 | RADRPT ---
PROCEDURE: MRI Brain without contrast. CLINICAL INDICATION: Altered mental status, evaluate for stroke TECHNIQUE: Routine MRI of the brain performed without intravenous contrast. COMPARISON: CT brain 07/13/2017 FINDINGS: Diffusion: No evidence of acute infarct, recent ischemia, or recent ictal focus. Hemorrhage: No evidence of focal hematoma or subarachnoid hemorrhage. No evidence for remote blood d egradation products. Mass effect/midline shift: None. Parenchymal volume: Appears within normal limits for the patient's age. Ventricular system: Concordant with the degree of parenchymal volume. Parenchymal signal changes: Nonspecific small scattered areas of T2 and FLAIR signal hyperintensity measuring several millimeters are seen in the supratentorial white matter most commonly due to chron ic moderate microvascular ischemic changes. Differential considerations include sequelae of migraine s; prior parenchymal injury from infectious or inflammatory/demyelinating process; vasculopathy. Vasculature: Please see report of concurrent MRA. Dural venous sinuses appear patent. Paranasal sinuses: Minimal mucosal thickening of the right maxillary sinus and right frontal sinus. Mastoid air cells: Clear. Calvarium: Within normal limits. Extracranial soft tissues: Within normal limits. IMPRESSION: No acute intracranial abnormalities. Nonspecific small scattered areas of T2 and FLAIR signal hyperintensity measuring several millimeter s are seen in the supratentorial white matter most commonly due to chronic moderate microvascular is chemic changes. Differential considerations include sequelae of migraines; prior parenchymal injury from infectious or inflammatory/demyelinating process; vasculopathy. RPTAT: AADD .Scotty Azevedo MD, Date Time Electronically viewed and signed by .Scotty Azevedo MD, on 07/14/2017 21:17 .B/
--- NOTE | 2017-07-14 21:23 | RADRPT ---
PROCEDURE: MRA Neck without contrast. CLINICAL INDICATION: Altered mental status, evaluate for stroke TECHNIQUE: MRA of the neck was performed using time of flight technique without intravenous contra st. Maximal intensity projection images and three-dimensional reconstruction images are producing r analiliawed. Degrees of stenosis are determined by direct reference to the distal normal vessel diameter as per NASCET criteria. COMPARISON: No prior studies are available for comparison. FINDINGS: Aortic arch: The origins of the great vessels of the neck are patent. Right common carotid artery: Patent. Right internal carotid artery: Patent. Right external carotid artery: Patent with normal branching. Left common carotid artery: Patent. Left internal carotid artery: Patent. Left external carotid artery: Patent with normal branching. Right vertebral artery: Small caliber of the right vertebral artery appears to be predominately supp ly the right posterior inferior cerebellar artery, developmental variant. Left vertebral artery: Patent. Vertebral dominance pattern: Left IMPRESSION: Normal MRA of the extracranial circulation without evidence of stenosis by NASCET criteria. RPTAT: AADD .Scotty Azevedo MD, MD Date Time Electronically viewed and signed by .Scotty Azevedo MD, on 07/14/2017 21:23 .B/
--- NOTE | 2017-07-14 21:35 | RADRPT ---
PROCEDURE: MRA Brain without contrast. CLINICAL INDICATION: Altered mental status, evaluate for stroke TECHNIQUE: MR angiography of the brain was performed without intravenous contrast. Multiplanar re constructions, three-dimensional reconstructions, as well as maximal intensity projection images are produced and reviewed. COMPARISON: None FINDINGS: Internal carotid arteries: Normal appearance of the right internal carotid artery. Attenuated visualization of the petrous port ion of the left internal carotid artery possibly due to patient motion artifact. Anterior cerebral arteries: A1 segments are codominant. Anterior communicating artery is visualized. Visualized A2 and A3 distribution of the anterior cerebral arteries are patent. Middle cerebral arteries: Both middle cerebral arteries as well as there branch vessels are patent and symmetric in appearance . Small bilateral posterior communicating arteries are present. 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 Patent do minant appearing left vertebral artery. Basilar artery is patent. Posterior cerebral arteries: Patent bilaterally. IMPRESSION: Attenuated visualization of the petrous portion of the left internal carotid artery possibly due to patient motion artifact. 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 [place] of [place] and cerebral branch vessels are patent. CT angiography of the intracranial circulation suggested for further evaluation. RPTAT: AADD .Scotty Azevedo MD, MD Date Time Electronically viewed and signed by .Scotty Azevedo MD, on 07/14/2017 21:35 .B/
[2017-07-15] VITALS (15 sets, daily range): BP systolic 125–200; BP diastolic 63–93; PULSE 56–81; RESP 16–19
[2017-07-15] MEDS ORDERED: INFLUENZA VIRUS VACCINE 0.5 ML SYG IM* ONE (01:30)
[2017-07-15] MEDS: ACCU-CHEK XX SCH (02:00)
[2017-07-15] MEDS ORDERED: ACCU-CHEK XX SCH (02:00)
[2017-07-15] MEDS: SOD CHLORIDE 0.9% 1,000 ML IV SCH ×3 (02:12→23:12)
[2017-07-15] MEDS: LEVOTHYROXINE 88 MCG TAB PO SCH (06:09)
[2017-07-15] MEDS: hydrALAzine 20 MG INJ IV PRN ×2 (07:40→20:31)
[2017-07-15 07:45] LABS: BASOPHILS % 0.5 % (0.0-2.0); EOSINOPHILS # 0.1 10^3/ul (0.0-0.5); EOSINOPHILS % 1.2 % (0.0-7.0); HEMATOCRIT 37.6 % (37.0-47.0); HEMOGLOBIN 11.8 g/dl (12.0-16.0); LYMPHOCYTES # 2.2 10^3/ul (0.8-2.9); LYMPHOCYTES % 33.7 % (15.0-51.0); MEAN CORPUSCULAR HEMOGLOBIN 31.5 pg (29.0-33.0); MEAN CORPUSCULAR HGB CONC 31.4 g/dl (32.0-37.0); MEAN CORPUSCULAR VOLUME 100.3 fl (82.0-101.0); MEAN PLATELET VOLUME 10.1 fl (7.4-10.4); MONOCYTE # 0.4 10^3/ul (0.3-0.9); MONOCYTES % 6.7 % (0.0-11.0); NEUTROPHIL # 3.8 10^3/ul (1.6-7.5); NEUTROPHILS % 57.6 % (39.0-77.0); PLATELET COUNT 174 10^3/UL (140-415); RED BLOOD COUNT 3.75 10^6/ul (4.20-5.40); RED CELL DISTRIBUTION WIDTH 14.7 % (11.5-14.5); WHITE BLOOD COUNT 6.5 10^3/ul (4.8-10.8)
[2017-07-15] MEDS: INSULIN ASPART [NOVOLOG] 3 ML PEN SC SCH ×4 (07:55→20:33)
[2017-07-15 08:07] LABS: ALBUMIN 3.3 g/dl (3.3-4.9); CALCIUM 8.4 mg/dl (8.4-10.2); CREATININE 0.98 mg/dl (0.44-1.00); MAGNESIUM 1.8 mg/dl (1.7-2.5); PHOSPHORUS 3.6 mg/dl (2.5-4.9); POTASSIUM 3.9 mmol/L (3.5-5.1)
[2017-07-15] MEDS: FOLIC ACID 1 MG TAB PO SCH (08:42)
[2017-07-15] MEDS: FAMOTIDINE 20 MG INJ IV SCH ×2 (08:42→20:32)
[2017-07-15] MEDS: INSULIN ASP PROT/ASPART (70/30) PEN SC SCH ×2 (10:40→20:35)
--- NOTE | 2017-07-15 13:47 | CONS ---
Date/Time of Note Date/Time of Note DATE: 07/15/17 TIME: 13:41 Assessment/Plan Assessment/Plan Chief Complaint/Hosp Course Episode of dysarthria Problems: Additional Assessment/Plan Patient is a 66-year-old female with hypertension and diabetes admitted with sudden onset of symptoms of slurred speech. She was also disoriented. She spoke with her daughter who noticed her to have slurred speech. Patient had history of hypoglycemia in the past but this time she had just eaten. Her symptoms has improved. CT scan of the brain without contrast showed moderate white matter disease, nothing acute. Examination is nonfocal. My impression is that she likely had an episode of hypoglycemia or TIA. MRI of the brain is unremarkable. MR angiogram of the brain showed hypoattenuation of the left ICA and poor visualization of vertebral artery. Plan CT angiogram of the brain Follow echocardiogram Continue aspirin 81 mg p.o. daily Neuro check every [address] angiogram is unremarkable patient can be discharged home and follow-up as an outpatient Consultation Date/Type/Reason Admit Date/Time Jul 13, 2017 at 18:53 Initial Consult Date 07/14/17 Type of Consultation: Neurology Reason for Consultation Dysarthria 24 HR Interval Summary Free Text/Dictation She has no recurrence of her symptoms. MRI of the brain showed no acute stroke. 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 Constitutional: no complaints Exam/Review of Systems Vital Signs Vitals Vital Signs Date Time Temp Pulse Resp B/P Pulse Ox O2 Delivery O2 Flow Rate FiO2 07/15/17 12:30 98.1 72 18 125/63 98 07/13/17 21:15 Room Air Intake and Output 07/14/17 07/14/17 07/15/17 15:00 23:00 07:00 Intake Total 800 ml 1730 ml Balance 800 ml 1730 ml Exam Constitutional: alert, oriented, well developed Psych: nl mood/affect, no complaints Head: atraumatic, normocephalic Eyes: EOMI, nl conjunctiva, nl lids, nl sclera ENMT: mucosa pink and moist, nl external ears & nose, nl lips & teeth, nl nasal mucosa & septum Neck: non-tender, supple Respiratory: clear to auscultation, normal air movement Cardiovascular: nl pulses, regular rate and rhythm Gastrointestinal: nl liver, spleen, non-tender, soft Genitourinary - Female: nl adnexae, nl external genitalia Musculoskeletal: nl extremities to inspection, nl gait and stance Extremities: normal pulses 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, nl mental status, nl speech, nl strength Skin: nl turgor Lymph: nl lymph nodes Results Result Diagram: 07/15/17 0705 07/15/17 0705 Results 24 hrs Laboratory Tests Test 07/14/17 17:59 07/14/17 21:55 07/15/17 02:05 07/15/17 02:40 Bedside Glucose 108 186 40 *L 128 Test 07/15/17 07:05 07/15/17 08:19 07/15/17 10:34 07/15/17 12:23 White Blood Count 6.5 Red Blood Count 3.75 L Hemoglobin 11.8 L Hematocrit 37.6 Mean Corpuscular Volume 100.3 Mean Corpuscular Hemoglobin 31.5 Mean Corpuscular Hemoglobin Concent 31.4 L Red Cell Distribution Width 14.7 H Platelet Count 174 Mean Platelet Volume 10.1 Neutrophils % 57.6 Lymphocytes % 33.7 Monocytes % 6.7 Eosinophils % 1.2 Basophils % 0.5 Nucleated Red Blood Cells % 0.0 Neutrophils # 3.8 Lymphocytes # 2.2 Monocytes # 0.4 Eosinophils # 0.1 Basophils # 0.0 Nucleated Red Blood Cells # 0.0 Sodium Level 143 Potassium Level 3.9 Chloride Level 111 H Carbon Dioxide Level 29 Anion Gap 7 L Blood Urea Nitrogen 13 Creatinine 0.98 Glucose Level 97 Calcium Level 8.4 Phosphorus Level 3.6 Magnesium Level 1.8 Albumin 3.3 Bedside Glucose 98 250 H 127 Medications Medications Current Medications Sodium Chloride (NS) 1,000 ml @ 70 mls/hr [id number] IV Last administered on 07/15t 07:44; Admin Dose 70 MLS/HR; Start 07/13/17 at 20:42 Ondansetron HCl (Zofran Inj) 4 mg Q6H PRN IV NAUSEA AND/OR VOMITING; Start at 21:00 Acetaminophen (Tylenol Tab) 650 mg Q6H PRN PO PAIN LEVEL 1-3 OR FEVER; Start at 21:00 Famotidine (Pepcid Iv) 20 mg Q12 IV Last administered on 07/15/17 08:42; Admin Dose 20 MG; Start 07/13/17 at 21:00 Hydralazine HCl (Apresoline) 10 mg Q6H PRN IV ELEVATED BLOOD PRESSURE Last administered on 07/15/17 07:40; Admin Dose 10 MG; Start 07/14/17 at 00:00 Folic Acid (Folic Acid) 1 mg DAILY PO Last administered on 07/15/17 08:42; Admin Dose 1 MG; Start 07/14/17 at 09:00 Insulin Aspart Prota 70%/Aspart 30% (Novolog Mix (70/ 30) Flexpen) 10 unit QPM SC Last administered on 07/14/17 22:11; Admin Dose 10 UNIT; Start 07/14/17 at 21:00 Insulin Aspart Prota 70%/Aspart 30% (Novolog Mix (70/ 30) Flexpen) 30 unit QAM SC Last administered on 07/15/17 10:40; Admin Dose 30 UNIT; Start 07/14/17 at 09:00 Diagnostic Test (Pha) (Accu-Chek) 1 ea 02 XX ; Start 07/15/17 at 02:00 Miscellaneous Information 1 ea NOTE XX ; Start 07/14/17 at 04:00 Glucose (Glutose) 15 gm Q15M PRN PO DECREASED GLUCOSE; Start 07/14/17 at 04:00 Glucose (Glutose) 22.5 gm Q15M PRN PO DECREASED GLUCOSE; Start 07/14/17 at 04: 00 Dextrose (D50w Syringe) 25 ml Q15M PRN IV DECREASED GLUCOSE Last administered on 07/15/17 02:11; Admin Dose 25 ML; Start 07/14/17 at 04:00 Dextrose (D50w Syringe) 50 ml Q15M PRN IV DECREASED GLUCOSE; Start 07/14/17 at 04:00 Glucagon (Glucagen) 1 mg Q15M PRN IM DECREASED GLUCOSE; Start 07/14/17 at 04:00 Glucose (Glutose) 15 gm Q15M PRN BUCCAL DECREASED GLUCOSE; Start 07/14/17 at 04 :00 Procedures Procedures MR angiogram of the head 07/14/2017 IMPRESSION: Attenuated visualization of the petrous portion of the left internal carotid artery possibly due to patient motion artifact. 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 Daphne of Larry and cerebral branch vessels are patent. CT angiography of the intracranial circulation suggested for further evaluation. RPTAT: AADD .Scotty Azevedo MD, Date Time Electronically viewed and signed by .Scotty Azevedo MD, on 07/14/2017 21:35 MRI of the brain 07/14/2017 IMPRESSION: No acute intracranial abnormalities. Nonspecific small scattered areas of T2 and FLAIR signal hyperintensity measuring several millimeters are seen in the supratentorial white matter most commonly due to chronic moderate microvascular ischemic changes. Differential considerations include sequelae of migraines; prior parenchymal injury from infectious or inflammatory/demyelinating process; vasculopathy. RPTAT: AADD .Scotty Azevedo MD, MD Date Time Electronically viewed and signed by .Scotty Azevedo MD, MD on 07/14/2017 21:17 BRENTON GONZALEZ MD Jul 15, 2017 13:47
--- NOTE | 2017-07-15 15:46 | PN ---
Date/Time of Note Date/Time of Note DATE: 07/15/17 TIME: 15:42 Assessment/Plan VTE Prophylaxis VTE Prophylaxis Intervention: LMWH Lines/Catheters IV Catheter Type (from [facility] Peripheral IV Urinary Cath still in place: No Assessment/Plan Assessment/Plan 1. Slurred speech secondary to TIA vs hypoglycemia - CT scan shows white matter changes but no acute abnormalities - MRI of the brain is unremarkable. MR angiogram of the brain showed hypoattenuation of the left ICA and poor visualization of vertebral artery. - Neurology on board and recommendations appreciated. Plans for CTA and if normal cleared for discharge home - ECHO nl with EF 60-65% - Neurochecks q4hr - Started on Aspirin 2. Diabetes mellitus - May need to adjust insulin if patient has persistent hypoglycemia episodes - Spoke with patient and she would like to have medications adjusted - A1c 6.0 3. rheumatoid arthritis - Continue folic acid - resume home methotrexate as an outpatient 4. hypertension - Will need to only take BP from left arm given h/o surgery on R subclavian - Will restart home Norvasc and add Lisinopril if >160. 5. Disposition - Awaiting CTA and improvement in BP - If remains stable will d/c tmrw Subjective 24 Hr Interval Summary Free Text/Dictation patient no longer experiencing slurred speech. She has had episodes of hypoglycemia at 2am of 40 which is concerning. Patient denies any new complaints and anxious to go home. Exam/Review of Systems Vital Signs Vitals Vital Signs Date Time Temp Pulse Resp B/P Pulse Ox O2 Delivery O2 Flow Rate FiO2 07/15/17 12:30 98.1 72 18 125/63 98 07/13/17 21:15 Room Air Intake and Output 07/14/17 07/14/17 07/15/17 15:00 23:00 07:00 Intake Total 800 ml 1730 ml Balance 800 ml 1730 ml Exam General: NAD, awake and alert HEENT: NC/AT. symmetrical face, EOM intact, PERRL. no audible bruits CVS: regular rate and rhythm. no murmurs Lungs: CTA b/l. no wheezes or crackles Abd: soft, NT, ND, no rebound or guarding Ext: no cyanosis, clubbing, or edema Neuro: CN 2-12 intact. no focal deficits appreciated. 5/5 strength UE and LE b/ l. Results Result Diagram: 07/15/17 0705 07/15/17 0705 Results 24 hrs Laboratory Tests Test 07/14/17 17:59 07/14/17 21:55 07/15/17 02:05 07/15/17 02:40 Bedside Glucose 108 186 40 *L 128 Test 07/15/17 07:05 07/15/17 08:19 07/15/17 10:34 07/15/17 12:23 White Blood Count 6.5 Red Blood Count 3.75 L Hemoglobin 11.8 L Hematocrit 37.6 Mean Corpuscular Volume 100.3 Mean Corpuscular Hemoglobin 31.5 Mean Corpuscular Hemoglobin Concent 31.4 L Red Cell Distribution Width 14.7 H Platelet Count 174 Mean Platelet Volume 10.1 Neutrophils % 57.6 Lymphocytes % 33.7 Monocytes % 6.7 Eosinophils % 1.2 Basophils % 0.5 Nucleated Red Blood Cells % 0.0 Neutrophils # 3.8 Lymphocytes # 2.2 Monocytes # 0.4 Eosinophils # 0.1 Basophils # 0.0 Nucleated Red Blood Cells # 0.0 Sodium Level 143 Potassium Level 3.9 Chloride Level 111 H Carbon Dioxide Level 29 Anion Gap 7 L Blood Urea Nitrogen 13 Creatinine 0.98 Glucose Level 97 Calcium Level 8.4 Phosphorus Level 3.6 Magnesium Level 1.8 Albumin 3.3 Bedside Glucose 98 250 H 127 Medications Medications Current Medications Sodium Chloride (NS) 1,000 ml @ 70 mls/hr [id number] IV Last administered on 07/15 07:44; Admin Dose 70 MLS/HR; Start 07/13/17 at 20:42 Ondansetron HCl (Zofran Inj) 4 mg Q6H PRN IV NAUSEA AND/OR VOMITING; Start at 21:00 Acetaminophen (Tylenol Tab) 650 mg Q6H PRN PO PAIN LEVEL 1-3 OR FEVER; Start at 21:00 Famotidine (Pepcid Iv) 20 mg Q12 IV Last administered on 07/15/17 08:42; Admin Dose 20 MG; Start 07/13/17 at 21:00 Hydralazine HCl (Apresoline) 10 mg Q6H PRN IV ELEVATED BLOOD PRESSURE Last administered on 07/15/17 07:40; Admin Dose 10 MG; Start 07/14/17 at 00:00 Folic Acid (Folic Acid) 1 mg DAILY PO Last administered on 07/15/17 08:42; Admin Dose 1 MG; Start 07/14/17 at 09:00 Insulin Aspart Prota 70%/Aspart 30% (Novolog Mix (70/ 30) Flexpen) 10 unit QPM SC Last administered on 07/14/17 22:11; Admin Dose 10 UNIT; Start 07/14/17 at 21:00 Insulin Aspart Prota 70%/Aspart 30% (Novolog Mix (70/ 30) Flexpen) 30 unit QAM SC Last administered on 07/15/17 10:40; Admin Dose 30 UNIT; Start 07/14/17 at 09:00 Diagnostic Test (Pha) (Accu-Chek) 1 ea 02 XX ; Start 07/15/17 at 02:00 Miscellaneous Information 1 ea NOTE XX ; Start 07/14/17 at 04:00 Glucose (Glutose) 15 gm Q15M PRN PO DECREASED GLUCOSE; Start 07/14/17 at 04:00 Glucose (Glutose) 22.5 gm Q15M PRN PO DECREASED GLUCOSE; Start 07/14/17 at 04: 00 Dextrose (D50w Syringe) 25 ml Q15M PRN IV DECREASED GLUCOSE Last administered on 07/15/17 02:11; Admin Dose 25 ML; Start 07/14/17 at 04:00 Dextrose (D50w Syringe) 50 ml Q15M PRN IV DECREASED GLUCOSE; Start 07/14/17 at 04:00 Glucagon (Glucagen) 1 mg Q15M PRN IM DECREASED GLUCOSE; Start 07/14/17 at 04:00 Glucose (Glutose) 15 gm Q15M PRN BUCCAL DECREASED GLUCOSE; Start 07/14/17 at 04 :00 REYNALDO MANZANARES MD Jul 15, 2017 15:46
[2017-07-15] MEDS ORDERED: IODIXANOL LOCM 100 ML BTL ONE (16:42)
[2017-07-15] MEDS ORDERED: SOD CHLORIDE 0.9% 100 ML ONE (16:42)
--- NOTE | 2017-07-15 19:17 | RADRPT ---
PROCEDURE: CTA Head. CLINICAL INDICATION: Transit ischemic attack. TECHNIQUE: CTA of the head was obtained with 1 mm axial images. Sagittal and coronal reformations a nd MIPs were provided. The administered radiation dose was CTDI vol = 10.05, 10.05, 100.46, 30.73 m Gy, DLP = 5.02, 5.02, 50.23, 582.25 mGy-cm. Images were obtained prior following the intravenous con trast administration of 100 cc of Visipaque 3 20th contrast. Coronal and sagittal as well as olivia l intensity projection reformations were obtained. One or more of the following dose reduction techn iques were used: Automated exposure control, Adjustment of the mA and/or kV according to patient siz e, or Use of iterative reconstruction technique. COMPARISON: There are no similar studies submitted for comparison. MRA of the head from June. FINDINGS: CTA head: Carotid arteries: There are moderate vascular calcifications within the bilateral cavernous and supr aclinoid carotid arteries. This causes mild bilateral cavernous and mild right supraclinoid carotid artery stenosis. There is a beaded appearance of the distal right cervical internal carotid artery s uspicious for fibromuscular dysplasia which is not excluded. Anterior cerebral arteries: The right A1 segment is hypoplastic. There is severe stenosis of the lef t A2 segment with contrast noted distally. The right anterior cerebral arteries patent without signi ficant stenosis. Middle cerebral arteries: There is a severe focal stenosis within the right M3 middle cerebral arter y (image 129 series 2) with contrast noted distally. A small thrombus or excluded. The left middle c erebral artery is patent without significant stenosis. Posterior cerebral arteries: There is moderate right P3 posterior cerebral artery stenosis. The left posterior cerebral artery is patent without significant stenosis. Anterior communicating artery: Present. Posterior communicating arteries: Present bilaterally. Basilar artery: Patent without evidence of stenosis. Vertebral arteries: Patent bilaterally without evidence of stenosis. Vertebral artery dominance: Left. There is a significantly hypoplastic right V4 segment. Aneurysm: No aneurysm is identified. Venous sinuses: Patent. IMPRESSION: 1. Severe focal stenosis of the right M3 middle cerebral artery with contrast noted distally. A smal l thrombus is not excluded. 2. Severe left A2 stenosis with contrast noted distally. 3. Mild bilateral cavernous and mild right supraclinoid carotid artery stenosis. 4. Moderate right P3 posterior cerebral artery stenosis. 5. Beaded appearance of the distal right cervical internal carotid artery suspicious for fibromuscul ar dysplasia which is not excluded. 6. No definite intracranial aneurysm. 7. Significantly hypoplastic right V4 segment. RPTAT: HVF .Andrea Robert MD, Date Time Electronically viewed and signed by .Andrea Robert MD, on 07/15/2017 19:17 .F/
[2017-07-16] VITALS (14 sets, daily range): BP systolic 131–189; BP diastolic 63–89; PULSE 56–80; RESP 16–20
[2017-07-16] MEDS: ACCU-CHEK XX SCH (01:59)
[2017-07-16] MEDS: SOD CHLORIDE 0.9% 1,000 ML IV SCH ×2 (05:54→21:24)
[2017-07-16] MEDS: LEVOTHYROXINE 88 MCG TAB PO SCH (06:30)
[2017-07-16] MEDS: INSULIN ASPART [NOVOLOG] 3 ML PEN SC SCH ×4 (07:55→21:42)
[2017-07-16 08:30] LABS: BASOPHILS % 0.5 % (0.0-2.0); EOSINOPHILS # 0.2 10^3/ul (0.0-0.5); EOSINOPHILS % 2.7 % (0.0-7.0); HEMATOCRIT 34.9 % (37.0-47.0); HEMOGLOBIN 11.4 g/dl (12.0-16.0); LYMPHOCYTES # 2.7 10^3/ul (0.8-2.9); LYMPHOCYTES % 41.6 % (15.0-51.0); MEAN CORPUSCULAR HEMOGLOBIN 32.5 pg (29.0-33.0); MEAN CORPUSCULAR HGB CONC 32.7 g/dl (32.0-37.0); MEAN CORPUSCULAR VOLUME 99.4 fl (82.0-101.0); MEAN PLATELET VOLUME 10.2 fl (7.4-10.4); MONOCYTE # 0.5 10^3/ul (0.3-0.9); MONOCYTES % 7.5 % (0.0-11.0); NEUTROPHILS % 47.5 % (39.0-77.0); PLATELET COUNT 171 10^3/UL (140-415); RED BLOOD COUNT 3.51 10^6/ul (4.20-5.40); RED CELL DISTRIBUTION WIDTH 14.7 % (11.5-14.5); WHITE BLOOD COUNT 6.4 10^3/ul (4.8-10.8)
[2017-07-16] MEDS: FAMOTIDINE 20 MG INJ IV SCH ×2 (08:40→21:00)
[2017-07-16] MEDS: INSULIN ASP PROT/ASPART (70/30) PEN SC SCH ×2 (08:40→21:00)
[2017-07-16] MEDS: FOLIC ACID 1 MG TAB PO SCH (08:41)
[2017-07-16 08:42] LABS: ALBUMIN 3.1 g/dl (3.3-4.9); CALCIUM 8.2 mg/dl (8.4-10.2); CREATININE 1.01 mg/dl (0.44-1.00); MAGNESIUM 1.6 mg/dl (1.7-2.5); PHOSPHORUS 3.5 mg/dl (2.5-4.9); POTASSIUM 3.7 mmol/L (3.5-5.1)
[2017-07-16] MEDS ORDERED: AMLODIPINE 5 MG TAB PO SCH (09:00)
[2017-07-16] MEDS ORDERED: LISINOPRIL 10 MG TAB PO ONE (09:30)
[2017-07-16] MEDS: ASPIRIN 81 MG TAB PO SCH (11:39)
[2017-07-16] MEDS: CLOPIDOGREL 75 MG TAB PO SCH (11:39)
--- NOTE | 2017-07-16 13:02 | CONS ---
Date/Time of Note Date/Time of Note DATE: 07/16/17 TIME: 12:56 Assessment/Plan Assessment/Plan Chief Complaint/Hosp Course Episode of dysarthria Problems: Additional Assessment/Plan Patient is a 66-year-old female with hypertension and diabetes admitted with sudden onset of symptoms of slurred speech. She was also disoriented. She spoke with her daughter who noticed her to have slurred speech. Patient had history of hypoglycemia in the past but this time she had just eaten. Her symptoms has improved. CT scan of the brain without contrast showed moderate white matter disease, nothing acute. Examination is nonfocal. My impression is that she likely had an episode of hypoglycemia or TIA. MRI of the brain is unremarkable. MR angiogram of the brain showed hypoattenuation of the left ICA and poor visualization of vertebral artery. CT angiogram of the brain showed severe focal stenosis of the right M3 middle cerebral artery, a small thrombus is not excluded, severe left A2 stenosis, mild bilateral cavernous and mild right supraclinoid carotid artery stenosis, moderate right P3 posterior cerebral artery stenosis, beaded appearance of the distal right cervical internal carotid artery suspicious for fibromuscular dysplasia. Echocardiogram was unremarkable Plan Continue aspirin 81 mg p.o. daily Start Plavix 75 mg po qd Neuro check every 4 hours DC planning Consultation Date/Type/Reason Admit Date/Time Jul 13, 2017 at 18:53 Initial Consult Date 07/14/17 Type of Consultation: Neurology Reason for Consultation Dysarthria 24 HR Interval Summary Free Text/Dictation She has no recurrence of her symptoms. CT angiogram of the brain showed severe focal stenosis of the right M3 middle cerebral artery, a small thrombus is not excluded, severe left A2 stenosis, mild bilateral cavernous and mild right supraclinoid carotid artery stenosis, moderate right P3 posterior cerebral artery stenosis, beaded appearance of the distal right cervical internal carotid artery suspicious for fibromuscular dysplasia. Exam/Review of Systems Vital Signs Vitals Vital Signs Date Time Temp Pulse Resp B/P Pulse Ox O2 Delivery O2 Flow Rate FiO2 07/16/17 12:06 59 07/16/17 08:01 97.8 16 173/83 100 07/13/17 21:15 Room Air Intake and Output 07/15/17 07/15/17 07/16/17 15:00 23:00 07:00 Intake Total 1780 ml 900 ml Balance 1780 ml 900 ml Exam Constitutional: alert, oriented, well developed Psych: nl mood/affect, no complaints Head: atraumatic, normocephalic Eyes: EOMI, nl conjunctiva, nl lids, nl sclera ENMT: mucosa pink and moist, nl external ears & nose, nl lips & teeth, nl nasal mucosa & septum Neck: non-tender, supple Respiratory: clear to auscultation, normal air movement Cardiovascular: nl pulses, regular rate and rhythm Gastrointestinal: nl liver, spleen, non-tender, soft Musculoskeletal: nl extremities to inspection 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, nl mental status, nl speech, nl strength Skin: nl turgor, rash or lesions Lymph: nl lymph nodes Results Result Diagram: 07/16/17 0717 07/16/17 0717 Results 24 hrs Laboratory Tests Test 07/15/17 16:48 07/15/17 17:59 07/15/17 20:30 07/16/17 07:17 Bedside Glucose 68 L 105 111 White Blood Count 6.4 Red Blood Count 3.51 L Hemoglobin 11.4 L Hematocrit 34.9 L Mean Corpuscular Volume 99.4 Mean Corpuscular Hemoglobin 32.5 Mean Corpuscular Hemoglobin Concent 32.7 Red Cell Distribution Width 14.7 H Platelet Count 171 Mean Platelet Volume 10.2 Neutrophils % 47.5 Lymphocytes % 41.6 Monocytes % 7.5 Eosinophils % 2.7 Basophils % 0.5 Nucleated Red Blood Cells % 0.0 Neutrophils # 3.0 Lymphocytes # 2.7 Monocytes # 0.5 Eosinophils # 0.2 Basophils # 0.0 Nucleated Red Blood Cells # 0.0 Sodium Level 142 Potassium Level 3.7 Chloride Level 113 H Carbon Dioxide Level 28 Anion Gap 5 L Blood Urea Nitrogen 10 Creatinine 1.01 H Glucose Level 84 Calcium Level 8.2 L Phosphorus Level 3.5 Magnesium Level 1.6 L Albumin 3.1 L Test 07/16/17 08:01 07/16/17 11:41 Bedside Glucose 82 167 Medications Medications Current Medications Sodium Chloride (NS) 1,000 ml @ 70 mls/hr [id number] IV Last administered on 07/15t 23:12; Admin Dose 70 MLS/HR; Start 07/13/17 at 20:42 Ondansetron HCl (Zofran Inj) 4 mg Q6H PRN IV NAUSEA AND/OR VOMITING; Start at 21:00 Acetaminophen (Tylenol Tab) 650 mg Q6H PRN PO PAIN LEVEL 1-3 OR FEVER; Start at 21:00 Famotidine (Pepcid Iv) 20 mg Q12 IV Last administered on 07/15/17 08:42; Admin Dose 20 MG; Start 07/13/17 at 21:00 Hydralazine HCl (Apresoline) 10 mg Q6H PRN IV ELEVATED BLOOD PRESSURE Last administered on 07/15/17 20:31; Admin Dose 10 MG; Start 07/14/17 at 00:00 Folic Acid (Folic Acid) 1 mg DAILY PO Last administered on 07/16/17 08:41; Admin Dose 1 MG; Start 07/14/17 at 09:00 Insulin Aspart Prota 70%/Aspart 30% (Novolog Mix (70/ 30) Flexpen) 10 unit QPM SC Last administered on 07/14/17 22:11; Admin Dose 10 UNIT; Start 07/14/17 at 21:00 Insulin Aspart Prota 70%/Aspart 30% (Novolog Mix (70/ 30) Flexpen) 30 unit QAM SC Last administered on 07/15/17 10:40; Admin Dose 30 UNIT; Start 07/14/17 at 09:00 Diagnostic Test (Pha) (Accu-Chek) 1 ea 02 XX ; Start 07/15/17 at 02:00 Miscellaneous Information 1 ea NOTE XX ; Start 07/14/17 at 04:00 Glucose (Glutose) 15 gm Q15M PRN PO DECREASED GLUCOSE; Start 07/14/17 at 04:00 Glucose (Glutose) 22.5 gm Q15M PRN PO DECREASED GLUCOSE; Start 07/14/17 at 04: 00 Dextrose (D50w Syringe) 25 ml Q15M PRN IV DECREASED GLUCOSE Last administered on 07/15/17 02:11; Admin Dose 25 ML; Start 07/14/17 at 04:00 Dextrose (D50w Syringe) 50 ml Q15M PRN IV DECREASED GLUCOSE; Start 07/14/17 at 04:00 Glucagon (Glucagen) 1 mg Q15M PRN IM DECREASED GLUCOSE; Start 07/14/17 at 04:00 Glucose (Glutose) 15 gm Q15M PRN BUCCAL DECREASED GLUCOSE; Start 07/14/17 at 04 :00 Amlodipine Besylate (Norvasc) 5 mg DAILY PO Last administered on 07/16/17 08: 41; Admin Dose 5 MG; Start 07/16/17 at 09:00 Atorvastatin Calcium (Lipitor) 80 mg HS PO ; Start 07/16/17 at 21:00 Aspirin (Aspirin) 81 mg DAILY PO Last administered on 07/16/17 11:39; Admin Dose 81 MG; Start 07/16/17 at 09:30 Clopidogrel Bisulfate (plaVIX) 75 mg DAILY PO Last administered on 07/16/17 11 :39; Admin Dose 75 MG; Start 07/16/17 at 09:[address] angiogram of the brain 07/15/2017 Severe focal stenosis of the right M3 middle cerebral artery with contrast noted distally. A small thrombus is not excluded. 2. Severe left A2 stenosis with contrast noted distally. 3. Mild bilateral cavernous and mild right supraclinoid carotid artery stenosis. 4. Moderate right P3 posterior cerebral artery stenosis. 5. Beaded appearance of the distal right cervical internal carotid artery suspicious for fibromuscular dysplasia which is not excluded. 6. No definite intracranial aneurysm. 7. Significantly hypoplastic right V4 segment. BRENTON GONZALEZ MD Jul 16, 2017 13:02
[2017-07-16] MEDS ORDERED: ENALAPRILAT 1.25 MG INJ IV PRN (15:00)
[2017-07-16] MEDS ORDERED: MAGNESIUM SULFATE 2 GM/50 ML 50 ML IVPB ONE (15:00)
--- NOTE | 2017-07-16 16:50 | PN ---
Date/Time of Note Date/Time of Note DATE: 07/16/17 TIME: 16:50 Assessment/Plan VTE Prophylaxis VTE Prophylaxis Intervention: ambulation Lines/Catheters IV Catheter Type (from [facility]): Peripheral IV Urinary Cath still in place: No Assessment/Plan Assessment/Plan 1. Slurred speech secondary to TIA v - CT scan shows white matter changes but no acute abnormalities - MRI of the brain is unremarkable. MR angiogram of the brain showed hypoattenuation of the left ICA and poor visualization of vertebral artery. - CTA shows CT angiogram of the brain showed severe focal stenosis of the right M3 middle cerebral artery, a small thrombus is not excluded, severe left A2 stenosis, mild bilateral cavernous and mild right supraclinoid carotid artery stenosis, moderate right P3 posterior cerebral artery stenosis, beaded appearance of the distal right cervical internal carotid artery suspicious for fibromuscular dysplasia. - Neurology on board and recommendations appreciated. okay for discharge home once medically stable - Started on Plavix and continued on ASA. Lipitor added as well - ECHO nl with EF 60-65% - Neurochecks q4hr 2. Diabetes mellitus - Stable - Spoke with patient and she would like to have medications adjusted. Recommending follow up with Renal Medicine Physician as outpatient - A1c 6.0 3. rheumatoid arthritis - Continue folic acid - resume home methotrexate as an outpatient 4. hypertension - Will need to only take BP from left arm given h/o surgery on R subclavian - Patient on Lisinopril at home but did not take. Added norvac and will continue adjusting with goal SBP <140 5. Disposition - Once BP stable, SBP <140, will d/c home Subjective 24 Hr Interval Summary Free Text/Dictation Patient denies any further episodes of slurred speech, confusion, or any other concerning symptoms. No acute overnight events. BP still not well controlled. Patient anxious to go home. Exam/Review of Systems Vital Signs Vitals Vital Signs Date Time Temp Pulse Resp B/P Pulse Ox O2 Delivery O2 Flow Rate FiO2 07/16/17 16:46 69 189/89 07/16/17 15:25 97.6 20 99 Room Air Intake and Output 07/15/17 07/15/17 07/16/17 15:00 23:00 07:00 Intake Total 1780 ml 900 ml Balance 1780 ml 900 ml Exam General: NAD, awake and alert HEENT: NC/AT. symmetrical face, EOM intact, PERRL. no audible bruits CVS: regular rate and rhythm. no murmurs Lungs: CTA b/l. no wheezes or crackles Abd: soft, NT, ND, no rebound or guarding Ext: no cyanosis, clubbing, or edema Neuro: CN 2-12 intact. no focal deficits appreciated. 5/5 strength UE and LE b/ l. Results Result Diagram: 07/16/17 0717 07/16/17 0717 Results 24 hrs Laboratory Tests Test 07/15/17 17:59 07/15/17 20:30 07/16/17 07:17 07/16/17 08:01 Bedside Glucose 105 111 82 White Blood Count 6.4 Red Blood Count 3.51 L Hemoglobin 11.4 L Hematocrit 34.9 L Mean Corpuscular Volume 99.4 Mean Corpuscular Hemoglobin 32.5 Mean Corpuscular Hemoglobin Concent 32.7 Red Cell Distribution Width 14.7 H Platelet Count 171 Mean Platelet Volume 10.2 Neutrophils % 47.5 Lymphocytes % 41.6 Monocytes % 7.5 Eosinophils % 2.7 Basophils % 0.5 Nucleated Red Blood Cells % 0.0 Neutrophils # 3.0 Lymphocytes # 2.7 Monocytes # 0.5 Eosinophils # 0.2 Basophils # 0.0 Nucleated Red Blood Cells # 0.0 Sodium Level 142 Potassium Level 3.7 Chloride Level 113 H Carbon Dioxide Level 28 Anion Gap 5 L Blood Urea Nitrogen 10 Creatinine 1.01 H Glucose Level 84 Calcium Level 8.2 L Phosphorus Level 3.5 Magnesium Level 1.6 L Albumin 3.1 L Test 07/16/17 11:41 Bedside Glucose 167 Medications Medications Current Medications Sodium Chloride (NS) 1,000 ml @ 70 mls/hr [id number] IV Last administered on 07/15 23:12; Admin Dose 70 MLS/HR; Start 07/13/17 at 20:42 Ondansetron HCl (Zofran Inj) 4 mg Q6H PRN IV NAUSEA AND/OR VOMITING; Start at 21:00 Acetaminophen (Tylenol Tab) 650 mg Q6H PRN PO PAIN LEVEL 1-3 OR FEVER; Start at 21:00 Famotidine (Pepcid Iv) 20 mg Q12 IV Last administered on 07/15/17 08:42; Admin Dose 20 MG; Start 07/13/17 at 21:00 Hydralazine HCl (Apresoline) 10 mg Q6H PRN IV ELEVATED BLOOD PRESSURE Last administered on 07/15/17 20:31; Admin Dose 10 MG; Start 07/14/17 at 00:00 Folic Acid (Folic Acid) 1 mg DAILY PO Last administered on 07/16/17 08:41; Admin Dose 1 MG; Start 07/14/17 at 09:00 Insulin Aspart Prota 70%/Aspart 30% (Novolog Mix (70/ 30) Flexpen) 10 unit QPM SC Last administered on 07/14/17 22:11; Admin Dose 10 UNIT; Start 07/14/17 at 21:00 Insulin Aspart Prota 70%/Aspart 30% (Novolog Mix (70/ 30) Flexpen) 30 unit QAM SC Last administered on 07/15/17 10:40; Admin Dose 30 UNIT; Start 07/14/17 at 09:00 Diagnostic Test (Pha) (Accu-Chek) 1 ea 02 XX ; Start 07/15/17 at 02:00 Miscellaneous Information 1 ea NOTE XX ; Start 07/14/17 at 04:00 Glucose (Glutose) 15 gm Q15M PRN PO DECREASED GLUCOSE; Start 07/14/17 at 04:00 Glucose (Glutose) 22.5 gm Q15M PRN PO DECREASED GLUCOSE; Start 07/14/17 at 04: 00 Dextrose (D50w Syringe) 25 ml Q15M PRN IV DECREASED GLUCOSE Last administered on 07/15/17 02:11; Admin Dose 25 ML; Start 07/14/17 at 04:00 Dextrose (D50w Syringe) 50 ml Q15M PRN IV DECREASED GLUCOSE; Start 07/14/17 at 04:00 Glucagon (Glucagen) 1 mg Q15M PRN IM DECREASED GLUCOSE; Start 07/14/17 at 04:00 Glucose (Glutose) 15 gm Q15M PRN BUCCAL DECREASED GLUCOSE; Start 07/14/17 at 04 :00 Amlodipine Besylate (Norvasc) 5 mg DAILY PO Last administered on 07/16/17 08: 41; Admin Dose 5 MG; Start 07/16/17 at 09:00 Atorvastatin Calcium (Lipitor) 80 mg HS PO ; Start 07/16/17 at 21:00 Aspirin (Aspirin) 81 mg DAILY PO Last administered on 07/16/17 11:39; Admin Dose 81 MG; Start 07/16/17 at 09:30 Clopidogrel Bisulfate (plaVIX) 75 mg DAILY PO Last administered on 07/16/17 11 :39; Admin Dose 75 MG; Start 07/16/17 at 09:30 Enalaprilat 0.625 mg 0.625 mg Q4H PRN IV ELEVATED BLOOD PRESSURE Last administered on 07/16/17 15:25; Admin Dose 0.625 MG; Start 07/16/17 at 15:00 Magnesium Sulfate (Magnesium Sulfate 2 Gm/50 ml) 50 ml @ 25 mls/hr ONCE ONCE IVPB Last administered on 07/16/17 16:40; Admin Dose 25 MLS/HR; Start at 15:00; Stop 07/16/17 at 16:59 REYNALDO MANZANARES MD Jul 16, 2017 16:50
[2017-07-16] MEDS ORDERED: AMLODIPINE 5 MG TAB PO ONE (17:00)
[2017-07-16] MEDS: LISINOPRIL 20 MG TAB PO SCH (17:35)
[2017-07-16] MEDS ORDERED: ATORVASTATIN 80 MG TAB PO SCH (21:00)
[2017-07-17] VITALS (8 sets, daily range): BP systolic 134–164; BP diastolic 63–78; PULSE 64–71; RESP 16–20
[2017-07-17] MEDS: ACCU-CHEK XX SCH (02:05)
[2017-07-17] MEDS: LEVOTHYROXINE 88 MCG TAB PO SCH (06:24)
[2017-07-17 07:52] LABS: BASOPHILS % 0.4 % (0.0-2.0); EOSINOPHILS # 0.2 10^3/ul (0.0-0.5); EOSINOPHILS % 2.7 % (0.0-7.0); HEMOGLOBIN 11.4 g/dl (12.0-16.0); LYMPHOCYTES # 2.1 10^3/ul (0.8-2.9); LYMPHOCYTES % 37.4 % (15.0-51.0); MEAN CORPUSCULAR HEMOGLOBIN 32.3 pg (29.0-33.0); MEAN CORPUSCULAR HGB CONC 32.6 g/dl (32.0-37.0); MEAN CORPUSCULAR VOLUME 99.2 fl (82.0-101.0); MEAN PLATELET VOLUME 10.1 fl (7.4-10.4); MONOCYTE # 0.5 10^3/ul (0.3-0.9); NEUTROPHIL # 2.8 10^3/ul (1.6-7.5); NEUTROPHILS % 50.3 % (39.0-77.0); PLATELET COUNT 171 10^3/UL (140-415); RED BLOOD COUNT 3.53 10^6/ul (4.20-5.40); RED CELL DISTRIBUTION WIDTH 14.6 % (11.5-14.5); WHITE BLOOD COUNT 5.6 10^3/ul (4.8-10.8)
[2017-07-17 08:18] LABS: ALBUMIN 2.8 g/dl (3.3-4.9); CALCIUM 8.5 mg/dl (8.4-10.2); CREATININE 0.95 mg/dl (0.44-1.00); MAGNESIUM 1.8 mg/dl (1.7-2.5); PHOSPHORUS 3.5 mg/dl (2.5-4.9); POTASSIUM 3.5 mmol/L (3.5-5.1)
[2017-07-17] MEDS: INSULIN ASPART [NOVOLOG] 3 ML PEN SC SCH (08:35)
[2017-07-17] MEDS: INSULIN ASP PROT/ASPART (70/30) PEN SC SCH (08:36)
[2017-07-17] MEDS ORDERED: AMLODIPINE 5 MG TAB PO SCH (09:00)
[2017-07-17] MEDS ORDERED: AMLODIPINE 10 MG TAB PO SCH (09:00)
[2017-07-17] MEDS: FOLIC ACID 1 MG TAB PO SCH (10:03)
[2017-07-17] MEDS: CLOPIDOGREL 75 MG TAB PO SCH (10:03)
[2017-07-17] MEDS: FAMOTIDINE 20 MG INJ IV SCH (10:03)
[2017-07-17] MEDS: ASPIRIN 81 MG TAB PO SCH (10:03)
[2017-07-17] MEDS: LISINOPRIL 20 MG TAB PO SCH (10:04)
--- NOTE | 2017-07-17 11:35 | PDOCDIS ---
Discharge Instructions CONDITION Patient Condition: Fair HOME CARE INSTRUCTIONS: Special Diet: Carb control ACTIVITY: Activity Restrictions: Slowly Increase Activity FOLLOW UP/APPOINTMENTS Follow-up Plan 1. Please take all medications as directed. New blood pressure medications include amlodipine 10mg and lisinopril 10 mg. New cholesterol medications include atorvastatin 80mg. New heart/stroke prophylaxis medications include aspirin 81mg and plavix. Continue other home medications including methotrexate/ folic acid and insulin (reduced dose) 2. Immediately follow up with Primary care provider to adjust insulin and to be put on custodial insulin regimen with less hypoglycemia and for immediate endocrinology referral. REFERRALS Other Referrals Dr. Bowie, endocrinology ISAURA PINEDA Jul 17, 2017 11:35
[2017-07-17] MEDS ORDERED: CLOP75TA28 PO (11:49)
[2017-07-17] MEDS ORDERED: NOVMIX SC ×2 (11:49)
[2017-07-17] MEDS ORDERED: ATOR80TA75 PO (11:49)
[2017-07-17] MEDS ORDERED: LISI20TA11 PO (11:49)
[2017-07-17] MEDS ORDERED: AMLO-147 PO (11:49)
[2017-07-17] MEDS ORDERED: ASPI81TA3 PO (11:49)
--- NOTE | 2017-07-17 12:16 | PDOCDIS ---
Discharge Instructions CONDITION Patient Condition: Fair HOME CARE INSTRUCTIONS: Special Diet: Carb control ACTIVITY: Activity Restrictions: Slowly Increase Activity FOLLOW UP/APPOINTMENTS Follow-up Plan 1. Please take all medications as directed. New blood pressure medications include amlodipine 10mg and lisinopril 10 mg. New cholesterol medications include atorvastatin 80mg. New heart/stroke prophylaxis medications include aspirin 81mg and plavix. Continue other home medications including methotrexate/ folic acid and insulin (reduced dose) 2. Immediately follow up with Primary care provider to adjust insulin and to be put on head loft worker insulin regimen with less hypoglycemia and for immediate endocrinology referral. REFERRALS Other Referrals Please follow up with Dr. Francisco Bowie, boiler control technician and Dr. Yanna Loya, neurologist within 1-2 weeks ISAURA PINEDA Jul 17, 2017 12:16
--- NOTE | 2017-07-17 13:58 | DS ---
Date/Time of Note Date/Time of Note DATE: 07/17/17 TIME: 13:58 Discharge Summary Admission/Discharge Info Admit Date/Time Jul 13, 2017 at 18:53 Discharge Date/Time Patient Condition: Fair Hx of Present Illness Chief complaint: Slurred speech Patient is a 66-year-old female with hypertension and diabetes who presents with slurred speech. The patient was found to be disoriented and slurred speech at 4:30 PM per the daughter. The daughter had called her mom at that time. The mom says that she was not feeling well. The daughter thought maybe this was related to a low blood sugar but the patient had eaten one hour prior. The patient was still out of it however per the daughter. The speech is gotten better but the daughter says her still may be some slurred speech. There is no one-sided weakness. The patient was sweating profusely during this episode per the daughter. The symptoms really started at around 3:45P per the patient. Upon my examination patient states that her Symptoms have improved and she feels that she is back to normal her speech appears to be be normal as she states. Allergies: NKDA Medications: See [facility] Hospital Course Discharge diagnoses Slurred speech TIA versus hypoglycemia Hypoglycemia Diabetes mellitus Hypertension Rheumatoid arthritis Patient is a 66-year-old -[place] female with past medical history of hypertension and diabetes who originally presented with slurred speech. Patient eventually regained all function and speech with no focal deficit and neurology was consulted for possible TIA. Patient underwent imaging which included MRI MRA of the head and neck as well as CTA of the head. Imaging showed severe focal stenosis of the right M3 middle cerebral artery, a small thrombus is not excluded, severe left A2 stenosis, mild bilateral cavernous and mild right supraclinoid carotid artery stenosis, moderate right P3 posterior cerebral artery stenosis, beaded appearance of the distal right cervical internal carotid artery suspicious for fibromuscular dysplasia. Patient was started on atorvastatin, aspirin, Plavix per neurology recommendations and was okayed for discharge to follow-up in the outpatient setting. Patient was kept in the hospital to manage her blood pressure and her blood pressure medications were adjusted as needed. Patient will be discharged as she is stable with new instructions as far as insulin management which includes prompt referral to an automatic i threading machine feeder as her insulin regimen is antiquated and does cause a certain amount of hypoglycemia which may be the original cause of patient's slurred speech, patient also knows to follow-up with a neurologist and her primary care provider as soon as possible. Patient is stable with no focal deficit at this time. Home Meds Active Scripts Aspirin (Aspirin) 81 Mg Chew, 81 MG PO DAILY for 30 Days, #30 TAB 2 Refills Prov:ISAURA PINEDA 07/17/17 Lisinopril* (Lisinopril*) 20 Mg Tablet, 20 MG PO DAILY for 30 Days, #30 TAB 2 Refills Prov:ISAURA PINEDA J 07/17/17 Atorvastatin* (Atorvastatin*) 80 Mg Tablet, 80 MG PO HS for 30 Days, #30 TAB 2 Refills Prov:ISAURA PINEDA J 07/17/17 Amlodipine Besylate* (Amlodipine Besylate*) 10 Mg Tablet, 10 MG PO DAILY for 30 Days, #30 TAB 2 Refills Prov:ISAURA PINEDA J 07/17/17 Clopidogrel Bisulfate (Clopidogrel) 75 Mg Tablet, 75 MG PO DAILY for 30 Days, # 30 TAB 2 Refills Prov:ISAURA PINEDA J 07/17/17 Insulin Aspart (Novolog Mix (70/30)) 100 Units/Ml Soln, 5 UNITS SC QPM for 30 Days, #30 EA Prov:ISAURA PINEDA J 07/17/17 Insulin Aspart (Novolog Mix (70/30)) 100 Units/Ml Soln, 20 UNIT SC QAM for 30 Days, #30 VIAL Prov:ISAURA PINEDA 07/17/17 Reported Medications Methotrexate* (Methotrexate*) 2.5 Mg Tab, 17.5 MG PO Q7D, TAB 07/13/17 Folic Acid* (Folic Acid*) 1 Mg Tablet, 1 MG PO DAILY, TAB 07/13/17 Levothyroxine Sodium* (Levoxyl*) 88 Mcg Tablet, 88 MCG PO BEFORE BREAKFAST, #30 TAB 06/25/16 Discontinued Reported Medications Lisinopril* (Lisinopril*) 2.5 Mg Tablet, 2.5 MG PO DAILY, #30 TAB 06/25/16 Ergocalciferol* (Drisdol* (Vitamin D2)) 50,000 Unit Capsule, 72916 UNIT PO Q7D, CAP 06/25/16 Follow-up Plan 1. Please take all medications as directed. New blood pressure medications include amlodipine 10mg and lisinopril 10 mg. New cholesterol medications include atorvastatin 80mg. New heart/stroke prophylaxis medications include aspirin 81mg and plavix. Continue other home medications including methotrexate/ folic acid and insulin (reduced dose) 2. Immediately follow up with Primary care provider to adjust insulin and to be put on care home insulin regimen with less hypoglycemia and for immediate endocrinology referral. Primary Care Provider Not On Staff Doctor Time spent on discharge: > 30 minutes Pending Labs Laboratory Tests Test 07/16/17 16:58 07/16/17 21:25 07/17/17 01:46 07/17/17 07:06 Bedside Glucose 119mg/dL (70-220) 193mg/dL (70-220) 111mg/dL (70-220) White Blood Count 5.610^3/ul (4.8-10.8) Red Blood Count 3.5310^6/ul (4.20-5.40) Hemoglobin 11.4g/dl (12.0-16.0) Hematocrit 35.0% (37.0-47.0) Mean Corpuscular Volume 99.2fl (82.0-101.0) Mean Corpuscular Hemoglobin 32.3pg (29.0-33.0) Mean Corpuscular Hemoglobin Concent 32.6g/dl (32.0-37.0) Red Cell Distribution Width 14.6% (11.5-14.5) Platelet Count 45849^3/UL (140-415) Mean Platelet Volume 10.1fl (7.4-10.4) Neutrophils % 50.3% (39.0-77.0) Lymphocytes % 37.4% (15.0-51.0) Monocytes % 9.0% (0.0-11.0) Eosinophils % 2.7% (0.0-7.0) Basophils % 0.4% (0.0-2.0) Nucleated Red Blood Cells % 0.0/100WBC (0.0-0.0) Neutrophils # 2.810^3/ul (1.6-7.5) Lymphocytes # 2.110^3/ul (0.8-2.9) Monocytes # 0.510^3/ul (0.3-0.9) Eosinophils # 0.210^3/ul (0.0-0.5) Basophils # 0.010^3/ul (0.0-0.1) Nucleated Red Blood Cells # 0.010^3/ul (0.0-0.0) Sodium Level 139mmol/L (135-144) Potassium Level 3.5mmol/L (3.5-5.1) Chloride Level 112mmol/L (97-110) Carbon Dioxide Level 26mmol/L (21-31) Anion Gap 5 (8-16) Blood Urea Nitrogen 11mg/dl (7-20) Creatinine 0.95mg/dl (0.44-1.00) Glucose Level 135mg/dl (70-220) Calcium Level 8.5mg/dl (8.4-10.2) Phosphorus Level 3.5mg/dl (2.5-4.9) Magnesium Level 1.8mg/dl (1.7-2.5) Albumin 2.8g/dl (3.3-4.9) Test 07/17/17 08:17 Bedside Glucose 141mg/dL (70-220) ISAURA PINEDA Jul 17, 2017 13:58
--- NOTE | 2017-07-17 17:14 | CONS ---
Date/Time of Note Date/Time of Note DATE: 07/17/17 TIME: 17:12 Consult Date/Type/Reason Admit Date/Time Jul 13, 2017 at 18:53 Initial Consult Date 07/14/17 Type of Consultation: Neurology Reason for Consultation eval for CVA imaging suggestive of FMD Subjective remains stable no further neurologic deficits Objective Vital Signs Date Time Temp Pulse Resp B/P Pulse Ox O2 Delivery O2 Flow Rate FiO2 07/17/17 12:00 64 07/17/17 11:56 97.6 20 154/78 100 07/16/17 15:25 Room Air Intake and Output 07/16/17 07/16/17 07/17/17 15:00 23:00 07:00 Intake Total 680 ml Balance 680 ml Exam Constitutional: alert, oriented, well developed Psych: nl mood/affect, no complaints Head: atraumatic, normocephalic Eyes: EOMI, nl conjunctiva, nl lids, nl sclera ENMT: mucosa pink and moist, nl external ears & nose, nl lips & teeth, nl nasal mucosa & septum Neck: non-tender, supple Respiratory: clear to auscultation, normal air movement Cardiovascular: nl pulses, regular rate and rhythm Gastrointestinal: nl liver, spleen, non-tender, soft Musculoskeletal: nl extremities to inspection Neurological: FLATCAR WHACKER II-XII intact, nl mental status, nl speech, nl strength Skin: nl turgor, rash or lesions Lymph: nl lymph nodes Results/Medications Result Diagram: 07/17/17 0706 07/17/17 0706 Results 24 hrs Laboratory Tests Test 07/16/17 21:25 07/17/17 01:46 07/17/17 07:06 07/17/17 08:17 Bedside Glucose 193 111 141 White Blood Count 5.6 Red Blood Count 3.53 L Hemoglobin 11.4 L Hematocrit 35.0 L Mean Corpuscular Volume 99.2 Mean Corpuscular Hemoglobin 32.3 Mean Corpuscular Hemoglobin Concent 32.6 Red Cell Distribution Width 14.6 H Platelet Count 171 Mean Platelet Volume 10.1 Neutrophils % 50.3 Lymphocytes % 37.4 Monocytes % 9.0 Eosinophils % 2.7 Basophils % 0.4 Nucleated Red Blood Cells % 0.0 Neutrophils # 2.8 Lymphocytes # 2.1 Monocytes # 0.5 Eosinophils # 0.2 Basophils # 0.0 Nucleated Red Blood Cells # 0.0 Sodium Level 139 Potassium Level 3.5 Chloride Level 112 H Carbon Dioxide Level 26 Anion Gap 5 L Blood Urea Nitrogen 11 Creatinine 0.95 Glucose Level 135 # Calcium Level 8.5 Phosphorus Level 3.5 Magnesium Level 1.8 Albumin 2.8 L Assessment/Plan Chief Complaint/Hosp Course Patient is a 66-year-old female with hypertension and diabetes admitted with sudden onset of symptoms of slurred speech. She was also disoriented. She spoke with her daughter who noticed her to have slurred speech. Patient had history of hypoglycemia in the past but this time she had just eaten. Her symptoms has improved. CT scan of the brain without contrast showed moderate white matter disease, nothing acute. Examination is nonfocal. My impression is that she likely had an episode of hypoglycemia or TIA. MRI of the brain is unremarkable. MR angiogram of the brain showed hypoattenuation of the left ICA and poor visualization of vertebral artery. CT angiogram of the brain showed severe focal stenosis of the right M3 middle cerebral artery, a small thrombus is not excluded, severe left A2 stenosis, mild bilateral cavernous and mild right supraclinoid carotid artery stenosis, moderate right P3 posterior cerebral artery stenosis, beaded appearance of the distal right cervical internal carotid artery suspicious for fibromuscular dysplasia. Echocardiogram was unremarkable Plan Continue aspirin 81 mg p.o. daily Start Plavix 75 mg po qd Lipitor 80 mg qhs i suggest she follow up with vascular surgeon for work up of FMD with outpatient neurology follow up as well Problems: HELGA RIVERA MD Jul 17, 2017 17:14
== END 2017-07-17 14:20 | disposition home or self-care (01) | DRG 639 ==
LOC: E/R 18:00 → TEL 18:53
PROVIDERS: ADMIT Internal Medicine; ATTEND Internal Medicine
DX: E11.649 Type 2 diabetes mellitus with hypoglycemia without coma (principal); I10 Essential (primary) hypertension; I66.01 Occlusion and stenosis of right middle cerebral artery; R47.81 Slurred speech; M06.9 Rheumatoid arthritis, unspecified; E11.319 Type 2 diabetes mellitus with unspecified diabetic retinopathy without macular edema; I66.12 Occlusion and stenosis of left anterior cerebral artery; I66.21 Occlusion and stenosis of right posterior cerebral artery; I65.21 Occlusion and stenosis of right carotid artery; Z79.4 Long term (current) use of insulin
CPT/HCPCS: 36415; 70450; 70496; 70544; 70549; 70551; 71010; 80048; 80053; 80061; 80069; 80307; 81001; 82962; 83036; 83735; 84443; 84484; 85025; 85610; 85730; 90686; 92610; 93005; 93306; 96374; 96375; 97161; 97166; J0360; J1815; J1817; J3475; J7030; Q9967

== ENCOUNTER 2018-12-28 11:27 | Emergency (ER) | payer MEDICARE, OTHER ==
[~2018-12-28] VITALS: Wt 80.0 kg
[~2018-12-28 11:27] MED LIST changes: +AMLO-147 PO; +ASPI-831 PO; +ATOR-2 PO; +CLOP75TA28 PO; -ERGO500014 PO; +FOLI-49 PO; +LISI-471 PO; -LISI2.5T59 PO; +MET25 PO
[2018-12-28] MEDS ORDERED: NICARDipine HCL 30 MG CAPSULE PO ONE (15:00)
[2018-12-28] MEDS ORDERED: MECLIZINE 12.5 MG TAB PO ONE (15:00)
[2018-12-28] MEDS ORDERED: MECL12.574 PO (15:48)
--- NOTE | 2018-12-28 15:52 | ERD ---
ER Documentation Chief Complaint Chief Complaint DIZZINESS SINCE THIS MORNING HPI Patient is a 68-year-old female with hypertension and diabetes who presents with dizziness. The patient says that she feels like the room is spinning. She had nausea and vomiting. The symptoms have been constant. Moving her head makes it worse. She denies headache. She said the symptoms started this morning and her blood sugar was 65 but her sugars usually in the 60s. She felt a little bit better after eating. Upon review of old medical records the patient has had 2 previous visits to the ER. ROS All systems reviewed and are negative except as per history of present illness. Medications Home Meds Active Scripts Meclizine Hcl* (Antivert*) 12.5 Mg Tab, 25 MG PO Q6H PRN for DIZZINESS, #20 TAB Prov:KENDRICK HAYNES MD 12/28/18 Aspirin (Aspirin) 81 Mg Chew, 81 MG PO DAILY for 30 Days, #30 TAB 2 Refills Prov:ISAURA PINEDA 07/17/17 Lisinopril* (Lisinopril*) 20 Mg Tablet, 20 MG PO DAILY for 30 Days, #30 TAB 2 Refills Prov:ISAURA PINEDA 07/17/17 Atorvastatin* (Atorvastatin*) 80 Mg Tablet, 80 MG PO HS for 30 Days, #30 TAB 2 Refills Prov:ISAURA PINEDA 07/17/17 Amlodipine Besylate* (Amlodipine Besylate*) 10 Mg Tablet, 10 MG PO DAILY for 30 Days, #30 TAB 2 Refills Prov:ISAURA PINEDA 07/17/17 Clopidogrel Bisulfate (Clopidogrel) 75 Mg Tablet, 75 MG PO DAILY for 30 Days, #30 TAB 2 Refills Prov:ISAURA PINEDA 07/17/17 Insulin Aspart (Novolog Mix (70/30)) 100 Units/Ml Soln, 5 UNITS SC QPM for 30 Days, #30 EA Prov:ISAURA PINEDA 07/17/17 Insulin Aspart (Novolog Mix (70/30)) 100 Units/Ml Soln, 20 UNIT SC QAM for 30 Days, #30 VIAL Prov:ISAURA PINEDA 07/17/17 Reported Medications Methotrexate* (Methotrexate*) 2.5 Mg Tab, 17.5 MG PO Q7D, TAB 07/13/17 Folic Acid* (Folic Acid*) 1 Mg Tablet, 1 MG PO DAILY, TAB 9/21/17 Levothyroxine Sodium* (Levoxyl*) 88 Mcg Tablet, 88 MCG PO BEFORE BREAKFAST, #30 TAB 06/25/16 Allergies Allergies: Coded Allergies: No Known Allergy (Unverified , 07/13/17) PMhx/Soc History of Surgery: Yes (RIGHT SHOULDER ) Anesthesia Reaction: No Hx Neurological Disorder: No Hx Respiratory Disorders: No Hx Cardiac Disorders: Yes (HTN) Hx Psychiatric Problems: No Hx Miscellaneous Medical Probl: Yes (HTN, DM, retinopathy, thoracic outlet syndrome) Hx Alcohol Use: No Hx Substance Use: No Hx Tobacco Use: No Smoking Status: Never smoker FmHx Family History: diabetes Physical Exam Vitals Vital Signs Date Temp Pulse Resp B/P (MAP) Pulse Ox O2 O2 Flow FiO2 Time Delivery Rate 12/28/18 62 17 151/72 100 Room Air 16:06 (98) 12/28/18 59 17 166/80 10 15:42 (108) 12/28/18 66 17 188/82 100 Room Air 15:19 (117) 12/28/18 98.9 79 18 197/104 97 11:31 (135) Physical Exam Const: No acute distress Head: Atraumatic Eyes: Normal Conjunctiva ENT: Normal External Ears, Nose and Mouth. Neck: Full range of motion. No meningismus. Resp: Clear to auscultation bilaterally Cardio: Regular rate and rhythm, no murmurs Abd: Soft, non tender, non distended. 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 Psych: Normal Mood and Affect Results 24 hrs Laboratory Tests Test 12/28/18 15:45 Bedside Glucose 130 mg/dL Current Medications Medications Dose Sig/Aleshia Start Time Status Last (Trade) Ordered Route PRN Stop Time Admin Dose Reason Admin Meclizine 25 mg ONCE ONCE 12/28/18 DC 12/28/18 HCl PO 15:00 12/28/18 15:17 (Antivert) 15:01 Nicardipine 30 mg ONCE ONCE 12/28/18 DC 12/28/18 HCl PO 15:00 12/28/18 15:17 (Cardene) 15:01 Procedures/MDM EKG read by me: Rate/Rhythm: First-degree AV block at a rate of 65 Intervals: Normal Impression: First-degree AV block without ischemia CT brain negative per radiology. Accu-Chek within normal limits. Patient is a 68-year-old female presents with dizziness. She feels like the room is spinning. At this point I believe the patient likely has vertigo. EKG shows no signs of ischemia. CT scan of the brain was negative for bleed or mass. Accu-Chek was negative for hypo-or hyperglycemia. Patient will be discharged but will need close follow-up with her primary doctor within 24-48 hours. At this point I doubt intracranial mass, intracranial hemorrhage, or stroke. The patient was given meclizine for systematic relief. She can return for any worsening symptoms. Departure Diagnosis: Primary Impression: Vertigo Additional Impression: Dizziness Condition: Fair Patient Instructions: Dizziness, Unk Cause, Vertigo, Unspecified Referrals: Your doctor Additional Instructions: Call your primary care doctor TOMORROW for an appointment during the next 1-2 days.See the doctor sooner or return here if your condition worsens before your appointment time. KENDRICK HAYNES MD Dec 28, 2018 15:52
[2018-12-28 16:06] VITALS: BP 151/72; PULSE 62; RESP 17
== END 2018-12-28 16:21 | disposition home or self-care (01) ==
LOC: E/R 11:27
DX: R42 Dizziness and giddiness (principal); E11.9 Type 2 diabetes mellitus without complications; I10 Essential (primary) hypertension; Z79.82 Long term (current) use of aspirin; Z79.4 Long term (current) use of insulin; Z79.01 Long term (current) use of anticoagulants
CPT/HCPCS: 70450; 82962; 93005

== ENCOUNTER 2019-05-12 21:38 | Emergency (ER) | payer MEDICARE, OTHER ==
[~2019-05-12] VITALS: Ht 167.6 cm; Wt 62.9 kg
[~2019-05-12 21:38] MED LIST changes: +BACI28.431 TOP; +CEPH-443 PO; +MECL12.574 PO; +TRAM50TA2 PO
[2019-05-12 21:45] VITALS: Ht 167.6 cm; Wt 62.9 kg
[2019-05-12] MEDS ORDERED: DIPHTH/TET/ACEL PERTUSS (ADULT) 0.5 ML VIAL IM* ONE (22:00)
[2019-05-12] MEDS ORDERED: BACITRACIN 0.9 GM OINT TOP ONE (22:00)
[2019-05-12] MEDS ORDERED: KETOROLAC 60 MG INJ IM STA (22:00)
[2019-05-12] MEDS ORDERED: morphine 2 MG INJ IV STA (22:00)
[2019-05-12] MEDS ORDERED: morphine 2 MG INJ IM STA (22:29)
[2019-05-12] MEDS ORDERED: BACITRACIN 0.5%/ZINC 28.35 GM OINT TOP ONE (23:00)
[2019-05-13 00:29] VITALS: BP 168/74; PULSE 61; RESP 18
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
== END 2019-05-13 00:30 | disposition home or self-care (01) ==
LOC: FTE 21:38
DX: T24.211A Burn of second degree of right thigh, initial encounter (principal); T24.212A Burn of second degree of left thigh, initial encounter; I10 Essential (primary) hypertension; E11.9 Type 2 diabetes mellitus without complications; X10.0XXA Contact with hot drinks, initial encounter; Y92.9 Unspecified place or not applicable; Z23 Encounter for immunization
CPT/HCPCS: 16020; 90471; 90715; 96372; 99284; J2270